=== PATIENT | female | born 1995 | race Caucasian/White ===

== ENCOUNTER → 2020-03-29 | Outpatient (CLI) | payer OTHER, SELFPAY ==
[2020-03-29 18:12] LABS: hCG Titer Quant., Serum 31 mIU/mL (1-3)
== END | disposition home or self-care (01) ==
LOC: LAB 17:03
PROVIDERS: Referring Provider Obstetrics & Gynecology; Visit Provider Obstetrics & Gynecology
DX: N92.6 Irregular menstruation, unspecified (principal)
CPT/HCPCS: 36415; 84702

== ENCOUNTER → 2020-04-01 08:40 | Outpatient (CLI) | payer OTHER, SELFPAY ==
[2020-04-01 09:19] LABS: hCG Titer Quant., Serum 10 mIU/mL (1-3)
== END ==
PROVIDERS: Referring Provider Obstetrics & Gynecology; Visit Provider Obstetrics & Gynecology
DX: N92.1 Excessive and frequent menstruation with irregular cycle (principal)
CPT/HCPCS: 36415; 84702

== ENCOUNTER → 2020-04-04 | Outpatient (CLI) | payer OTHER, SELFPAY ==
[2020-04-04 08:43] LABS: hCG Titer Quant., Serum 1 mIU/mL (1-3)
== END | disposition home or self-care (01) ==
LOC: PAVLAB 08:08
PROVIDERS: Referring Provider Obstetrics & Gynecology Reproductive Endocrinology; Visit Provider Obstetrics & Gynecology Reproductive Endocrinology
DX: O02.1 Missed abortion (principal)
CPT/HCPCS: 36415; 84702

== ENCOUNTER → 2020-05-02 | Outpatient (CLI) | payer OTHER, SELFPAY ==
[2020-05-02 08:49] LABS: hCG Titer Quant., Serum 15 mIU/mL (1-3)
== END | disposition home or self-care (01) ==
LOC: PAVLAB 08:19
PROVIDERS: Referring Provider Obstetrics & Gynecology; Visit Provider Obstetrics & Gynecology
DX: Z32.01 Encounter for pregnancy test, result positive (principal)
CPT/HCPCS: 36415; 84702

== ENCOUNTER → 2020-05-04 | Outpatient (CLI) | payer OTHER, SELFPAY ==
[2020-05-04 07:41] LABS: hCG Titer Quant., Serum 36 mIU/mL (1-3)
== END | disposition home or self-care (01) ==
LOC: LAB 06:53
PROVIDERS: Visit Provider Obstetrics & Gynecology
DX: Z32.01 Encounter for pregnancy test, result positive (principal)
CPT/HCPCS: 36415; 84702

== ENCOUNTER → 2020-05-29 17:16 | Outpatient (CLI) | payer OTHER, SELFPAY ==
[2020-05-29 13:00] VITALS: BMI 27.4
[2020-05-29 18:29] LABS: Amphetamine Urine VISTA NEGATIVE (<1000 ng/mL); Barbiturate Urine VISTA NEGATIVE (< 200 ng/mL); Benzodiazepine Urine VISTA NEGATIVE (< 200 ng/mL); Cocaine Urine VISTA NEGATIVE (< 300 ng/mL); Ecstacy Urine VISTA NEGATIVE (< 500 ng/mL); Methadone Urine VISTA NEGATIVE (< 300 ng/mL); PCP Urine VISTA NEGATIVE (< 25 ng/mL); THC Urine VISTA NEGATIVE (< 50 ng/mL); Vista UDS pH Range 5
[2020-06-01 03:07] LABS: Chlamydia By Nucleic Acid AMP Negative (Negative)
[2020-06-01 07:31] LABS: Gonococcus By Nucleic Acid AMP Negative (Negative)
== END ==
PROVIDERS: PCP Nurse Practitioner Primary Care; Referring Provider Obstetrics & Gynecology; Visit Provider Obstetrics & Gynecology
DX: Z34.90 Encounter for supervision of normal pregnancy, unspecified, unspecified trimester (principal)
CPT/HCPCS: 80307; 87086; 87491; 87591

== ENCOUNTER → 2020-06-14 08:18 | Outpatient (CLI) | payer OTHER, SELFPAY ==
[2020-05-29 13:00] VITALS: BMI 27.4
[2020-06-14 08:47] LABS: Absolute Lymphocyte Count 2.41 X10^3/uL (0.83-4.51); Absolute Neutrophil Count 6.7 X10^3/uL (2.0-7.7); Basophil# 0.05 X10^3/uL; Basophil% 0.5 % (0-1); Eosinophil# 0.41 X10^3/uL; Hematocrit 40.7 % (37-47); Hemoglobin 13.1 g/dL (12.0-15.0); Lymphocyte # 2.41 X10^3/ul (4.0); Lymphocyte % 23.5 % (19-41); Mean Corp Hgb Conc 32.2 g/dL (32-36); Mean Corpuscular Hgb 26.9 pg (27.0-32.0); Mean Corpuscular Volume 83.6 fL (81-99); Mean Platelet Vol. 9.6 fl (6.2-12.0); Monocyte# 0.63 X10^3/uL; Monocyte% 6.1 % (0-10); NRBC Flagged by Analyzer 0 % (0-5); Neutrophil % 65.3 % (47-70); Platelet Count 346 K/mm3 (150-450); RBC Distribution Width SD 39.1 fl (35.1-43.9); Red Blood Count 4.87 M/mm3 (4.2-5.4); White Blood Count 10.3 K/mm3 (4.4-11.0)
[2020-06-14 08:57] LABS: Glucose Challenge Gest 1H 50g 112 mg/dL (70-140)
[2020-06-14 11:47] LABS: HIV - WCH Non-Reactive (Nonreactive); Hepatitis B Surface Antigen Non-Reactive (Nonreactive); Hepatitis C Antibody Non-Reactive (Nonreactive); Rubella IgG 16.2 IU/mL
[2020-06-20 01:33] LABS: Rapid Plasmin Reagin (RPR) NONREACTIVE (NONREACTIVE)
== END ==
PROVIDERS: PCP Nurse Practitioner Primary Care; Referring Provider Obstetrics & Gynecology; Visit Provider Obstetrics & Gynecology
DX: Z34.90 Encounter for supervision of normal pregnancy, unspecified, unspecified trimester (principal)
CPT/HCPCS: 36415; 82950; 85025; 86592; 86703; 86762; 86803; 86850; 86900; 86901; 87340

== ENCOUNTER → 2020-07-17 13:46 | Outpatient (CLI) | payer OTHER, SELFPAY ==
[2020-07-17 08:33] VITALS: BMI 27.7
== END ==
PROVIDERS: PCP Nurse Practitioner Primary Care; Referring Provider Obstetrics & Gynecology; Visit Provider Obstetrics & Gynecology
DX: R30.0 Dysuria (principal)
CPT/HCPCS: 87086; 87088

== ENCOUNTER → 2020-07-25 12:20 | Outpatient (CLI) | payer OTHER, SELFPAY ==
[2020-07-17 08:33] VITALS: BMI 27.7
== END ==
PROVIDERS: PCP Nurse Practitioner Primary Care; Visit Provider Nurse Practitioner Women's Health
DX: O23.40 Unspecified infection of urinary tract in pregnancy, unspecified trimester (principal); Z3A.00 Weeks of gestation of pregnancy not specified
CPT/HCPCS: 87086; 87088

== ENCOUNTER 2020-08-04 20:02 | Emergency (ER) | payer OTHER, SELFPAY ==
[2020-07-17 08:33] VITALS: BMI 27.7
[2020-08-04 20:02] VITALS: BP 130/72; PULSE 88; RESP 16; TEMP 36.5; O2SAT 98; BMI 28.5
--- NOTE | 2020-08-04 20:22 | ED.VIS.GEN ---
History of Present Illness Chief Complaint: Abd Pain Narrative: Patient presents with left lower abdominal pain for a few days, no right abdominal pain. No flank pain no urinary symptoms. She is 16 weeks . She has not felt any movement yet. No fever chills cough or congestion. No chest pain or shortness of breath no lower extremity edema or calf pain or any other symptoms. No nausea vomiting or diarrhea. Past Medical History - Allergies and Home Meds Allergies/Adverse Reactions: Allergies latex Allergy (Mild, Verified 08/04/20 20:05) other morphine Allergy (Mild, Verified 08/04/20 20:05) other penicillin G Allergy (Mild, Verified 08/04/20 20:05) hives Primary Care Physician: Jennifer Abraham NP, CSR TECHNICIAN-C [Primary Care Provider] - Past Medical History: - - G2 at 16 weeks, miscarriage with the first at 4 to 5 weeks Smoking Status: Never smoker Review of Systems All systems negative except as indicated General: Denies: Fever Cardiovascular: Denies: Chest pain Respiratory: Denies: Dyspnea, Cough Gastrointestinal: Reports: Abdominal pain. Denies: Nausea, Vomiting Genitourinary: Denies: Dysuria Musculoskeletal: Denies: Myalgias, Back pain Skin: Denies: Rash Neurological: Denies: Weakness Hematologic: Denies: Easy bruising Physical Exam Vital Signs/Narrative: Vital Signs Temp Pulse Resp BP Pulse Ox 08/04/20 20:02 97.7 F L 88 16 130/72 H 98 General: Well nourished, Well developed Head: Normocephalic, Atraumatic ENT: Moist mucous membranes Neck: Supple Cardiovascular: Regular rate, Regular rhythm Respiratory: No distress, CTA bilaterally Abdomen: Soft, - - Gravid. Tenderness in the left lower quadrant no CVA tenderness. No right-sided abdominal pain. Back: Nontender, Normal Inspection Extremities: Nontender, No edema Skin: Normal color Neurological: Alert, Normal Strength, Normal Sensation Psychological: Normal affect Diagnostic/Tx/Re-eval - Medical Decision Making The bedside ultrasound. Fetus has heart rate in the 140s, there is movement. No gross abnormalities seen on a limited ultrasound exam. I talked to Dr. Ruano is on-call for Dr. Sewell. Patient is stable for discharge and follow-up with [facility] if there is any vaginal bleeding or worsening pain she is to return at this time I will discharge her in stable condition. ED Disposition - Plan for ED Patient: Disposition: Home or Assisted Living Diagnosis: , Abdominal pain Instructions: ED Established Normal Symptoms Referrals: Carmella Sewell MD [STAFF PHYSICIAN] - 3-5 Days
[2020-08-04 20:34] LABS: Bacteria 0 SEEN /hpf (None Seen); Mucous, Urine 0 SEEN /hpf (<or=2+); Red Blood Cells-Urine 0 SEEN /hpf (0-5); Squamous Epithelial Cells - UA 0 SEEN /hpf (5-10); White Blood Cells 0 SEEN /hpf (0-5)
[2020-08-04 20:39] LABS: Color, Urine Yellow (Yellow); Glucose, Dipstick Normal (Normal); Ketone-Dipstick Negative (Negative); Leukocyte Esterase-Dipstick Negative /ul (Negative); Nitrite-Dipstick Negative (Negative); Occult Blood-Urine 10 /ul (Negative); Protein-Dipstick Negative (Negative); Urine Bilirubin Dipstick Negative (Negative); Urine Clarity Clear (Clear); Urine Urobilinogen Normal (Normal); Urine pH 6.5 (5.0 - 8.0)
[2020-08-04 21:07] VITALS: BP 130/73; PULSE 78; RESP 16; O2SAT 98
== END 2020-08-04 21:09 | disposition home or self-care (01) ==
PROVIDERS: Emergency Provider Emergency Medicine; PCP Nurse Practitioner Primary Care
DX: R10.9 Unspecified abdominal pain (principal); O26.892 Other specified pregnancy related conditions, second trimester; Z3A.16 16 weeks gestation of pregnancy
CPT/HCPCS: 81001; 99281

== ENCOUNTER → 2020-08-05 15:55 | Outpatient (CLI) | payer OTHER, SELFPAY ==
[2020-08-05 15:10] VITALS: BMI 28.0
[2020-08-05 16:37] LABS: T4 Free Direct 1.18 ng/dL (0.76-1.46); Thyroid Stim Hormone (TSH) 2.04 uIU/mL (0.358-3.74)
--- NOTE | 2020-08-05 16:53 | US_ITS ---
STUDY: SECOND AND THIRD TRIMESTER OBSTETRICAL ULTRASOUND REASON FOR EXAM: Female, 25 years old LLQ PAIN LMP: TECHNIQUE: Transabdominal TECHNICAL QUALITY: Adequate. PRIOR ULTRASOUND: None. FINDINGS: There is a single intrauterine fetus. The fetus is in a cephalic presentation. There is demonstrated cardiac activity with a heart rate of 153 bpm. There is a normal amniotic fluid volume. The largest amniotic fluid pocket measures 4.9 x 2.9 cm.The placenta is posterior There are Grade 0 placental changes. The cervix measures 3.3 cm in length. The bilateral adnexal regions are normal. BIOMETRY: BPD: 4 cm: 18 weeks, 1 days HC: 15 cm: 12 weeks, 0 days AC: 11.3 cm: 17 weeks, 0 days FL: 2.2 cm: 16 weeks, 4 days CI: 0.76 FL/BPD: 0.55 FL/HC: FL/AC: 0.19 HC/AC: 1.32 age by current US: 17 weeks, 4 days. NICOL by current US: 841-2020. Estimated weight: grams, +/- grams, %. age by prior US: weeks, days. NICOL by prior US: . Age by LMP: 16 weeks, 5 days. NICOL by LMP: 01/15/2021. Left ovary measures 5.4 x 3.1 x 2.2 cm. There is a cyst measuring 2.4 x 2.4 x 1.6 cm likely representing corpus luteum ANATOMY: Not performed at this time. US/OB Limited With Biometrics IMPRESSION: Viable intrauterine gestation approximately 16-17 weeks gestational age. 2.4 x 2.4 x 1.6 cm cyst in left ovary likely corpus luteum Electronically Signed: Livan Vásquez MD at 19:46 EDT , Service support ,
== END ==
PROVIDERS: Nurse Practitioner Women's Health; PCP Nurse Practitioner Primary Care; Referring Provider Obstetrics & Gynecology; Visit Provider Obstetrics & Gynecology
DX: O23.40 Unspecified infection of urinary tract in pregnancy, unspecified trimester (principal); O09.90 Supervision of high risk pregnancy, unspecified, unspecified trimester; Z3A.00 Weeks of gestation of pregnancy not specified
CPT/HCPCS: 36415; 76816; 84439; 84443; 87086; 87088

== ENCOUNTER → 2020-10-25 12:29 | Outpatient (CLI) | payer OTHER, SELFPAY ==
[2020-09-30 08:15] VITALS: BMI 31.4
[2020-10-25 13:12] LABS: Absolute Lymphocyte Count 2.65 X10^3/uL (0.83-4.51); Absolute Neutrophil Count 11.7 X10^3/uL (2.0-7.7); Basophil# 0.08 X10^3/uL; Basophil% 0.5 % (0-1); Eosinophil# 0.42 X10^3/uL; Eosinophils% 2.5 % (0-5); Hematocrit 37.2 % (37-47); Hemoglobin 12.1 g/dL (12.0-15.0); Lymphocyte # 2.65 X10^3/ul (4.0); Lymphocyte % 15.8 % (19-41); Mean Corp Hgb Conc 32.5 g/dL (32-36); Mean Corpuscular Hgb 27.6 pg (27.0-32.0); Mean Corpuscular Volume 84.9 fL (81-99); Mean Platelet Vol. 9.6 fl (6.2-12.0); Monocyte# 1.49 X10^3/uL; Monocyte% 8.9 % (0-10); NRBC Flagged by Analyzer 0 % (0-5); Neutrophil # 11.69 X10^3/uL (2.7-7.7); Neutrophil % 69.7 % (47-70); Platelet Count 340 K/mm3 (150-450); RBC Distribution Width CV 13.7 % (11.6-14.6); RBC Distribution Width SD 42.2 fl (35.1-43.9); Red Blood Count 4.38 M/mm3 (4.2-5.4); White Blood Count 16.8 K/mm3 (4.4-11.0)
[2020-10-25 13:45] LABS: Glucose Challenge Gest 1H 50g 112 mg/dL (70-140); T4 Free Direct 1.04 ng/dL (0.76-1.46); Thyroid Stim Hormone (TSH) 1.66 uIU/mL (0.358-3.74)
== END ==
PROVIDERS: PCP Nurse Practitioner Primary Care; Referring Provider Obstetrics & Gynecology; Visit Provider Obstetrics & Gynecology
DX: O99.280 Endocrine, nutritional and metabolic diseases complicating pregnancy, unspecified trimester (principal); E07.9 Disorder of thyroid, unspecified; Z3A.00 Weeks of gestation of pregnancy not specified
CPT/HCPCS: 36415; 82950; 84439; 84443; 85025

== ENCOUNTER → 2020-12-18 13:10 | Outpatient (CLI) | payer OTHER, SELFPAY ==
[2020-12-18 11:21] VITALS: BMI 35.9
== END ==
PROVIDERS: PCP Nurse Practitioner Primary Care; Referring Provider Nurse Practitioner Women's Health; Visit Provider Nurse Practitioner Women's Health
DX: Z34.90 Encounter for supervision of normal pregnancy, unspecified, unspecified trimester (principal)
CPT/HCPCS: 87077; 87081; 87186

== ENCOUNTER 2021-01-01 23:45 | Inpatient (IN) | payer OTHER, SELFPAY ==
[2020-12-27 11:00] VITALS: BMI 36.8
[2021-01-01 23:22] VITALS: PULSE 110; TEMP 37; O2SAT 98
[2021-01-01 23:25] VITALS: BP 173/99; PULSE 116
[2021-01-01 23:41] VITALS: BP 180/106; PULSE 120
[2021-01-01 23:44] LABS: Hematocrit 38.8 % (37-47); Hemoglobin 12.8 g/dL (12.0-15.0); Mean Corpuscular Hgb 27.9 pg (27.0-32.0); Mean Corpuscular Volume 84.5 fL (81-99); Mean Platelet Vol. 10.6 fl (6.2-12.0); Platelet Count 321 K/mm3 (150-450); RBC Distribution Width CV 14.2 % (11.6-14.6); RBC Distribution Width SD 43.4 fl (35.1-43.9); Red Blood Count 4.59 M/mm3 (4.2-5.4); White Blood Count 15.3 K/mm3 (4.4-11.0)
[2021-01-01] MEDS: Labetalol (Prefilled) 20 MG/4 ML IV (23:53)
[2021-01-01 23:54] VITALS: PULSE 120; O2SAT 98
[2021-01-01 23:55] VITALS: BP 178/99; PULSE 109
[2021-01-01 23:58] LABS: AST(SGOT) 22 U/L (15-37); Alanine Aminotransfer ALT/SGPT 25 U/L (13-56); Creatinine, Serum 0.64 mg/dL (0.55-1.02); EST Glomerular Filtration Rate 120 mL/min (>60); Est Glom Filt Rate - Afr Amer 145 mL/min (>60); Uric Acid 4.8 mg/dL (2.6-6.0)
[2021-01-01 23:59] VITALS: PULSE 108; O2SAT 98
[2021-01-02] VITALS (146 sets, daily range): BP systolic 90–174; BP diastolic 48–99; PULSE 88–121; RESP 16–18; TEMP 36.5–37.6; O2SAT 81–100; BMI 37.3
[2021-01-02] MEDS: Lactated Ringers 1,000 ML 50 ML IV
[2021-01-02 00:22] LABS: Protein, Urine (Random) < 6.0 mg/dL (<11.9)
[2021-01-02] MEDS: Magnesium Sulfate 4gm/100mL 2 GM/50 ML IV.SOLN. IV (00:28)
[2021-01-02] MEDS: Magnesium Sulfate 20 GM/500 ML BAG IV ×3 (00:39→18:00)
[2021-01-02] MEDS: NIFEdipine 30 MG Tablet PO (00:57)
--- NOTE | 2021-01-02 01:48 | PCM.HPOB.BLA ---
- Problem List (1) Pre-eclampsia, severe, third trimester Status: Acute (2) 35 weeks gestation of Status: Acute Comment: electronic covid test ordered 12/13/20 (scheduled for 01/10/21 at 1400) (3) Alpha thalassemia silent carrier Status: Acute Comment: both her and are carriers. declined testing in , plan testing after . (4) GBS (group B Streptococcus carrier), +RV culture, currently Status: Acute (5) Influenza vaccine administered Status: Acute Comment: 06/14/2020sc (6) PCOS (polycystic ovarian syndrome) Status: Acute Comment: spontaneous conception. recommend healthy weight gain. metformin through 14 weeks. (7) Status: Acute Qualifiers: Comment: carrier screening done by [facility], declines genetic and ntd screening. normal anatomy repeat in 2 wks for addtnl views. Renals and stomach nl (8) Pyelectasis of fetus on ultrasound Status: Acute Comment: Left kidney: with proximal ureter minimally dilated. AP diameter of pelvix 4.5mm, FU US needed in 5-6 weeks (9) Supervision of high-risk Status: Acute Qualifiers: Comment: PRR Girl! NICOL 01/15/21 Saul (10) Thyroid disease affecting Status: Acute Comment: check tsh q trimester. drawn already in 1 tm and WNL. 08/05 normal 10/25/2020 NL (11) Urinary tract infection affecting Status: Acute Comment: repeat urine culture neg History and Physical Date of Admission: 01/02/21 Intake Vital Signs 12/27/20 Height 5 ft 7 in 12/27/20 Weight: 235 lb 12/27/20 BMI 36.8 12/27/20 BP 134/83 H Intake Visit Reasons: 37WK OB Chief Complaint: est ob Web Design Intern Required: No Is patient in pain?: No Allergies latex Allergy (Mild, Verified 12/27/20 11:00) other morphine Allergy (Mild, Verified 12/27/20 11:00) other penicillin G Allergy (Mild, Verified 12/27/20 11:00) hives Medications cholecalciferol (vitamin D3) 125 mcg (5,000 unit) capsule 125 mcg PO DAILY 05/29/20 [History Confirmed 12/27/20] cod liver oil 1 cap PO DAILY 05/29/20 [History Confirmed 12/27/20] lactobacillus combination no.8 3 billion cell capsule 3,000 mmu cells PO DAILY 05/29/20 [History Confirmed 12/27/20] levothyroxine 50 mcg tablet 50 mcg PO DAILY 05/29/20 [History Confirmed 12/27/20] vitamin #56-iron 35 mg and 5 mg-folic acid 1 mg-dha capsule 1 cap PO DAILY 05/29/20 [History Confirmed 12/27/20] zinc 50 mg tablet 50 mg PO DAILY 05/29/20 [History Confirmed 12/27/20] polyethylene glycol 3350 17 gram oral powder packet 17 g PO DAILY PRN #30 ea 09/09/20 [Rx Confirmed 12/27/20] Last Menstral Period: 03/30/20 Zika: Zika virus screening: Negative : No PFSH PFSH Medical History Hemorrhoid (Acute) Hypothyroid (Acute) IBS (irritable bowel syndrome) (Acute) Normal colonoscopy (Acute) PCOS (polycystic ovarian syndrome) (Acute) Surgical History History of cholecystectomy (Acute) Family History Mother GERD (gastroesophageal reflux disease) Grandmother Diabetes Social History (Updated 12/28/20 @ 05:[address] Carmella Sewell MD) Smoking Status: Never smoker alcohol intake: never substance use type: does not use caffeine: Yes what type of physical activity do you participate in: none seatbelt use: always do you feel safe at home: Yes additional social history: [facility] The[facility] Patient is a nurse in [place] Pregancy History 2 Elective abortions Hx Para 0 Spontaneous abortions 1 Hx # Term Pregnancies Ectopic pregnancies Hx # Pregnancies Multiple births # of living children Past Pregnancies Del. Date Name GA/Weeks Outcome Route Bth Weight Infant Gen Labor Lgth Anesthesia Del Locatn Provider FOB Unknown SAB 03/2020 HPI 37WK OB : Details: CAMILA PATTON is a 25 year old who presents for routine OB visit. OB Visit NICOL Calculator Estimated Delivery Date Method Current WG Current Estimate 01/15/21 Ultrasound #1 37w 3d Other Estimates 01/04/21 LMP (Certain) 39w 0d Expected Delivery Route/Plan Labor Preferences- CB/BF classes: done labor support person: [facility] labor intervention preferences: open pain management options preferred: minimal intervention but open to epidural cut cord/dad catch: cut yes maybe more : yes PP control planned: [] discussed possible routes of delivery and associated risks: discussed possible delivery modalities and possible indications for each including R/B/A of , VAVD, and CS. questions answered. special requests: [] Specific Issue/Plans flu vaccine:given tdap vaccine: given rhogam: na LARC form signed: declines movement and labor precautions reviewed. Problem list reviewed and updated with the most current plan of care details and appropriate orders placed. Relevant counseling for the gestational age provided. Continue routine care and follow up unless otherwise noted in visit notes/problem list details Initial Weight: 175 lb Date EGA Weight BP Urine Prot Glucose FHR FuHt Pres Dilation Effaced St Visit Note 05/29/20 7w 0d 175 lb 8 oz (+8 oz) 150 SM- CRL 1cm not cons with LMP 06/14/20 9w 2d 173 lb (-2 lb) 185 SM- no vb cramping 07/08/20 12w 5d 177 lb (+2 lb) 132/80 Negative Negative 155 sM- no vb cramping doing well less nausea 08/05/20 16w 5d 179 lb 8 oz (+4 lb 8 oz) 118/76 Negative Negative 157 MH-follow up ED visit last night. Persistent lower left pelvic pain, radiates to back. Saw PCP last week and had negative renal US. States hx of ovarian cyst and feels like that. Did have recent UTI, UA negative today. Culture pending. Proceed with OB US and check for cyst. Denies vaginal bleeding. 09/02/20 20w 5d 188 lb 2 oz (+13 lb 2 oz) 120/78 Negative Negative 150 GP - no cramping, LOF, VB, DFM. Discussed management of constipation. FU anatomy scan tomorrow for non-vis anatomy. 09/30/20 24w 5d 200 lb 4 oz (+25 lb 4 oz) 124/68 Negative Negative 155 24 GP - no LOF, VB, DFM, ctx. GCT next visit. Discussed child classes in third trimester. 10/25/20 28w 2d 210 lb (+35 lb) 120/80 Negative Negative 145 28 SM- no vb lof good fm no regular ctx tdap cbc gct nl 11/08/20 30w 2d 213 lb 4 oz (+38 lb 4 oz) 124/78 Negative Negative 135 31 GP - no LOF, VB, DFM, ctx. Denies complaints. LARC form signed. 11/19/20 31w 6d 219 lb (+44 lb) 128/80 Negative Negative 140 32 SM- no vb lof good fm no regular ctx, left periclitoral folliculitis discussed supportive care 12/06/20 34w 2d 227 lb (+52 lb) 110/76 Negative Negative 140 34 38 SM- no vb lof good fm no regular ctx, having carpal tunnel like symptoms using braces 12/18/20 36w 0d 229 lb (+54 lb) 126/86 Negative Negative 155 38 0 MH-work in:work up with nausea, diarrhea. BP at home X 1 was 155/88. No headache, vision changes. No VB, LOF. Good FM. Minimal edema feet and hands. Reassured, rest, FF. Kick counts. Monitor BP at home and call if >140/90, SMITH or vision changes. 12/27/20 37w 2d 235 lb (+60 lb) 134/83 Negative Negative 140 40 Cephalic 1 SM- no vb lof good fm no regular ctx ACOG First Trimester First Trimester: Desire for , Alcohol, Tobacco Cessation, Illicit/Recreational Drug/Substance Use, Intimate Partner Violence, Barriers to care, Unstable Housing, Communication Barriers, Environmental/Work Hazards, Anticipated Course of Care, Toxoplasmosis Precations, Use of Any medications, Sexual activity, Exercise, Dental Care, Sauna/Hot tub use, Seat Belt use, Childbirth classes/Hospital facilities, , Travel, Indications for US and Screening for Aneuploidy Diagnostics Diagnostics Diagnostics Glucose 1 Hr 50 gm 112 mg/dL (70-140) 10/25/20 Hgb 12.1 g/dL (12.0-15.0) 10/25/20 Hct 37.2 % (37-47) 10/25/20 Details: HIV: Urine Culture: Sequential Screen: NIPT Screen: ROS Const Reports system reviewed and no additional complaints, except as documented Card Reports system reviewed and no additional complaints, except as documented Resp Reports system reviewed and no additional complaints, except as documented GI Reports system reviewed and no additional complaints, except as documented, Reports nausea Reports system reviewed and no additional complaints, except as documented Musc Reports system reviewed and no additional complaints, except as documented all other systems reviewed and negative Exam Const General: cooperative, healthy appearing, comfortable [facility] Head: normal to inspection Nose: external nose normal Face and sinus: normal facial exam Neck Neck: normal visual inspection, full ROM, no lymphadenopathy Thyroid: thyroid normal Chest Chest palpation & inspection: normal inspection of the chest Resp Effort & Inspection: normal respiratory effort GI Inspection: normal to inspection Palpation: soft, other (gravid uterus) Other: infant vertex and appropriate size for gestational age Other: Cervical Exam: 1 Extrem General: pedal edema Results POC Urinalysis 2 Dip (Clinic) Office Urine Glucose Negative Last Edit by Gail Augustin on 12/27/20 11:05 Office Urine Protein Negative Last Edit by Gail Augustin on 12/27/20 11:05 Assessment & Plan Problems 1. Thyroid disease affecting O99.280; E07.9 check tsh q trimester. drawn already in 1 tm and WNL. 08/05 normal 10/25/2020 NL 2. PCOS (polycystic ovarian syndrome) E28.2 spontaneous conception. recommend healthy weight gain. metformin through 14 weeks. 3. Z34.90 carrier screening done by [facility], declines genetic and ntd screening. normal anatomy repeat in 2 wks for addtnl views. Renals and stomach nl 4. Alpha thalassemia silent carrier D56.3 both her and are carriers. declined testing in , plan testing after . 5. Influenza vaccine administered Z23 06/14/2020sc 6. Urinary tract infection affecting O23.40 repeat urine culture neg 7. Pyelectasis of fetus on ultrasound O35.8XX0 Left kidney: with proximal ureter minimally dilated. AP diameter of pelvix 4.5mm, FU US needed in 5-6 weeks 8. 35 weeks gestation of Z3A.35 electronic covid test ordered 12/13/20 (scheduled for 01/10/21 at 1400) 9. GBS (group B Streptococcus carrier), +RV culture, currently O99.820 10. Supervision of high-risk O09.90 PRR Girl! NICOL 01/15/21 [facility] IOL for Preeclampsia with severe features - treated with IV labetalol x1, magnesium sulfate for seizure ppx, Procardia XL 30mg ordered, PreE labs normal on admission Patient presents IOL, plan management for with cytotec. Pain management: Undecided on epidural. GBS positive-plan vancomycin. I have reviewed the [facility] and made any clinically relevant updates. UPDATE- I have seen the patient and performed any clinically relevant updates to the history and physical exam. Jennifer Ruano MD
[2021-01-02] MEDS: miSOPROStol 25 MCG TABLET VAGINAL ×4 (02:19→14:44)
[2021-01-02] MEDS: Acetaminophen 500 MG Tablet PO (06:24)
[2021-01-02] MEDS: 0.9% Saline Lock 10 ML Syringe IV ×2 (06:57→23:42)
[2021-01-02 07:01] LABS: Hematocrit 37.4 % (37-47); Hemoglobin 12.1 g/dL (12.0-15.0); Mean Corp Hgb Conc 32.4 g/dL (32-36); Mean Corpuscular Hgb 27.7 pg (27.0-32.0); Mean Corpuscular Volume 85.6 fL (81-99); Mean Platelet Vol. 10.1 fl (6.2-12.0); Platelet Count 282 K/mm3 (150-450); RBC Distribution Width CV 14.6 % (11.6-14.6); RBC Distribution Width SD 44.9 fl (35.1-43.9); Red Blood Count 4.37 M/mm3 (4.2-5.4); White Blood Count 15.1 K/mm3 (4.4-11.0)
[2021-01-02 07:11] LABS: Fibrinogen 554 mg/dl (203-444)
[2021-01-02 07:28] LABS: AST(SGOT) 18 U/L (15-37); Alanine Aminotransfer ALT/SGPT 23 U/L (13-56); Creatinine, Serum 0.56 mg/dL (0.55-1.02); EST Glomerular Filtration Rate 140 mL/min (>60); Est Glom Filt Rate - Afr Amer 169 mL/min (>60); Estimated Creatinine Clearance 149.34 ml/min; LDH 163 U/L (84-246); Magnesium 12.6 mg/dL (1.6-2.6); Uric Acid 4.6 mg/dL (2.6-6.0)
[2021-01-02 08:18] LABS: Magnesium 4.7 mg/dL (1.6-2.6)
[2021-01-02] MEDS: Magnesium Sulfate 4gm/100mL 4 GM/100 ML IV.SOLN. IV ×2 (08:54)
--- NOTE | 2021-01-02 09:17 | NURSING ---
Mag Bolus initiated and verified by Linda Downing RN and Elieser Long Rn. Mag maintenance 2.5 g/hour initiated and verified by Mary and Shakira Rn.
--- NOTE | 2021-01-02 10:02 | PCM.PN.BLA ---
Progress Note Magnesium level checked due to 4+ hyper reflexia persistent in 2-4+ beats of clonus. Blood pressures well controlled. Mag level subtherapeutic and therefore additional 4 g bolus given and will increase rate to 2.5 g an hour. Repeat mag level in 4 hours. Continue Cytotec at this time, may add Buck bulb with next cervical exam check STROKE Vital Signs/Narrative: Vital Signs Temp Pulse Resp BP Pulse Ox 01/02/21 09:58 103 H 97 01/02/21 09:54 104 H 134/80 H 01/02/21 09:53 97 01/02/21 09:48 108 H 99 01/02/21 09:45 81 01/02/21 09:40 110 H 16 139/82 H 100 01/02/21 09:39 110 H 139/82 H 100 01/02/21 09:34 111 H 99 01/02/21 09:29 109 H 99 01/02/21 09:25 109 H 18 133/69 H 97 01/02/21 09:24 121 H 133/69 H 97 01/02/21 09:19 103 H 97 01/02/21 09:14 105 H 97 01/02/21 09:09 106 H 16 130/73 H 97 01/02/21 09:04 113 H 98 01/02/21 08:59 111 H 98 01/02/21 08:54 97.9 F 96 18 132/77 H 98 01/02/21 08:53 96 132/77 H 01/02/21 07:57 98.3 F 98 01/02/21 07:55 98.3 F 105 H 16 134/75 H 01/02/21 07:54 98.3 F 105 H 134/75 H 01/02/21 07:00 108 H 135/75 H 01/02/21 06:59 99.3 F H 98 01/02/21 06:08 98.1 F
[2021-01-02] MEDS: 0.9% Normal Saline Single 100 ML IV.SOLN. INTRA-UTER (12:43)
[2021-01-02 13:41] LABS: Magnesium 5.6 mg/dL (1.6-2.6)
[2021-01-02] MEDS: Lactated Ringers 500 ML 999 ML IV ×2 (15:02→16:15)
--- NOTE | 2021-01-02 15:05 | PCM.PN.BLA ---
Progress Note FB placed, cytotec given at 230 and then patient requesting epidural. doing well bps controlled. fht cat I and reassuring, mag level therapeutic, continue 2.5g/hr STROKE Vital Signs/Narrative: Vital Signs Temp Pulse Resp BP Pulse Ox 01/02/21 14:50 98.5 F 89 16 129/73 H 98 01/02/21 14:00 97.9 F 01/02/21 13:57 99 136/64 H 01/02/21 13:56 97.9 F 99 16 136/64 H 98 01/02/21 12:59 99 01/02/21 12:57 97.9 F 94 16 134/65 H 99 01/02/21 12:04 102 H 138/80 H 01/02/21 12:03 97.7 F L 01/02/21 12:02 97.7 F L 102 H 18 138/80 H 100
[2021-01-02] MEDS: fentaNYL-bupivacaine (epidural) 100 ML BAG EPIDURAL ×2 (15:56→20:16)
[2021-01-02] MEDS: Oxytocin 30 units/NS 500 ml 30 UNITS/500 ML IV.SOLN IV (20:11)
[2021-01-02] MEDS: Ondansetron 4 MG/2 ML Vial IV (23:41)
[2021-01-03] VITALS (69 sets, daily range): BP systolic 114–145; BP diastolic 54–87; PULSE 88–146; RESP 16–18; TEMP 36.6–37.3; O2SAT 94–100
[2021-01-03] MEDS: 0.9% Saline Lock 10 ML Syringe IV (00:19)
[2021-01-03] MEDS: NIFEdipine 30 MG Tablet PO (00:19)
[2021-01-03] MEDS: fentaNYL-bupivacaine (epidural) 100 ML BAG EPIDURAL (01:03)
[2021-01-03] MEDS: Magnesium Sulfate 20 GM/500 ML BAG IV ×3 (02:01→21:41)
--- NOTE | 2021-01-03 02:02 | PCM.PN.BLA ---
Progress Note heart tone 150 minimal to moderate variability. Category 2 tracing having periods of recurrent late decelerations, intermittent periodic variable decelerations despite interventions with position changes and oxygen. Patient is made 1 cm of change in 14 hours arrested at 5 to 6 cm. Cervix thicker and more swollen now and flat pubic arch suspicious for CPD. intolerance to labor. Discussed with patient and her recommend proceeding with primary low transverse STROKE Vital Signs/Narrative: Vital Signs Temp Pulse BP Pulse Ox 01/03/21 01:33 98.6 F 96 114/56 L 01/03/21 00:57 98.6 F 93 126/65 H 01/03/21 00:05 98.4 F 98 125/64 H 100 01/02/21 23:33 96 117/58 L 01/02/21 22:38 98.1 F 98 105/53 L
--- NOTE | 2021-01-03 02:04 | OP.PCM_ITS ---
Problem List (1) Arrest of dilation, delivered, current hospitalization Status: Acute (2) Non-reassuring heart rate or rhythm affecting management of fetus Status: Acute (3) 35 weeks gestation of Status: Acute Comment: electronic covid test ordered 12/13/20 (scheduled for 01/10/21 at 1400) (4) Alpha thalassemia silent carrier Status: Acute Comment: both her and are carriers. declined testing in , plan testing after . (5) GBS (group B Streptococcus carrier), +RV culture, currently Status: Acute (6) Influenza vaccine administered Status: Acute Comment: 06/14/2020sc (7) PCOS (polycystic ovarian syndrome) Status: Acute Comment: spontaneous conception. recommend healthy weight gain. metformin through 14 weeks. (8) Pre-eclampsia, severe, third trimester Status: Acute (9) Status: Acute Qualifiers: Comment: carrier screening done by [facility], declines genetic and ntd screening. normal anatomy repeat in 2 wks for addtnl views. Renals and stomach nl (10) Pyelectasis of fetus on ultrasound Status: Acute Comment: Left kidney: with proximal ureter minimally dilated. AP diameter of pelvix 4.5mm, FU US needed in 5-6 weeks (11) Supervision of high-risk Status: Acute Qualifiers: Comment: PRR Girl! NICOL 01/15/21 Saul (12) Thyroid disease affecting Status: Acute Comment: check tsh q trimester. drawn already in 1 tm and WNL. 08/05 normal 10/25/2020 NL (13) Urinary tract infection affecting Status: Acute Comment: repeat urine culture neg Delivery Classification: BRENT application assistant: Khushi Celis Type of Anesthesia:: Epidural Special Medications: none Implants Used: none Date of Procedure: 01/03/21 Pre-Operative Diagnosis: intolerance to labor, arrest of dilation Post-Operative Diagnosis: same Indications for : Failure to Progress, Distress Description of Procedure: Patient presented secondary to elevated blood pressures at home and upon evaluation she was diagnosed with preeclampsia with severe features and started on magnesium sulfate. Patient was still hyperreflexic and therefore a mag level was checked and noted to be inadequate and therefore the magnesium sulfate was increased. Patient underwent induction with Cytotec followed by Cytotec and Buck bulb followed by Pitocin. Patient experienced an arrest of dilation for 14 hours between 5 and 6 cm. Contractions were unable to be made adequate due to intolerance to labor and periods of recurrent decelerations. Cervix began to feel more swollen upon the last check and it was discussed with the patient and her the decision to proceed with a primary low transverse C- section. The patient was placed in the dorsal supine position with leftward tilt. Patient was prepped and draped in the normal sterile fashion. Pfannenstiel skin incision was made with the scalpel and carried through to the underlying layer of fascia with the scalpel. Fascia was nicked in the midline and the incision extended laterally. The rectus bellies were dissected off superiorly and inferiorly with out complication both sharply and bluntly. The peritoneum was entered digitally. The incision was stretched and a low transverse uterine incision was made with the scalpel. The 's head was delivered atraumatically followed by the anterior and posterior shoulders without complication the rest of the infant delivered. The cord was clamped and cut and the infant was handed off to awaiting nurse. The placenta was delivered spontaneously immediately following and was noted to be intact and have a three- vessel cord. The uterus was exteriorized cleared of all clots and debris, and the incision was closed in a double layer closure using #1 Monocryl. The ovaries and fallopian tubes were noted to be within normal limits. The uterus was returned to the maternal abdomen and gutters were cleared of all clots and debris. The peritoneum was closed with 3-0 Monocryl in a running fashion. Gloves were changed prior to fascial closure. Fascia was closed with 0 PDS in a running fashion. Subcutaneous tissue was copiously irrigated and the skin was closed with 3-0 Monocryl in a subcuticular fashion. Mepilex dressing was applied without complication. Patient was taken to recovery in stable condition. Amniotic Membrane Rupture Type: Artificial Amniotic Fluid Description: Clear Placenta Disposition: [facility] Fluids Replaced: crystalloid Cord Entanglement: None Esitmated Blood Loss (ml): 300 Infant Gender: Female Delayed cord clamping: Yes Antibiotic Given: Clindamycin 600mg IV x1 and Gentamicin 1.5mg/kg IV x1, Zithromax 500 mg/5 mL X1 Pt instructed on risks of surgery: Bleeding, Anesthesia Risks, Infection, Injury to surrounding structure(s) including bowel and bladder Complications: None - Admit VTE Documentation VTE Present on Admission: No VTE Mechan Device Prophylaxis: SCD's Multi Select Codes - Urinary/Genital Urinary/Genital CPT Codes: 37721 [facility]
--- NOTE | 2021-01-03 02:16 | DCINST_ITS ---
Discharge Diet: No Restrictions Discharge Activity: May Not Drive - for 2 weeks, May not drive while taking narcotic pain medications., May Shower, May Take a Tub Bath - in 7 days May resume sexual activity in: 4-6 weeks Lifting Restrictions: 20 pounds Additional Activity Instructions:: Nothing in the vagina for 4-6 weeks. You may return to work/school in 6 weeks. Call your doctor if your incision/area has: Continuous Slow Oozing, Sudden Increased Bleeding, Increased Pain/ Swelling, Increased Redness, Foul Smelling Discharge Call your doctor if you observe: Fever of 101 or Higher, Using more than one pad per hour - for 2 hours Suture Line Care: Avoid Pulling/Pushing, Avoid Pinching/Bending Cleanse incision/area with: Keep Dressing Clean & Dry Additional Instructions: If you experience any of the following, contact your healthcare provider. * Bleeding that soaks a pad every hour for 2 hours * Fever 100.4 or higher * Unrelieved incision or abdominal pain * Swelling, redness, discharge or bleeding from your incision or episiotomy site * Your incision begins to separate * Problems urinating (including inability to urinate or burning while urinating). * Visual changes * Severe headache * Flu-like symptoms * Pain or redness in one of both of your breasts * Pain, warmth, tenderness or swelling in your legs, especially the calf area * Frequent nausea and vomiting * Symptoms of depression or anxiety If you experience any of the following, call 911 or go to the nearest Emergency Room. * Chest pain * Problems breathing * Seizure activity * Partial or complete paralysis of a body part, slurred speech, weakness or drooping of the face, or a sudden inability to walk or hold your balance Allergies/Adverse Reactions: Allergies morphine Allergy (Severe, Verified 01/02/21 00:36) Anaphylaxis penicillin G Allergy (Severe, Verified 01/02/21 00:36) Anaphylaxis latex Allergy (Mild, Verified 01/02/21 00:36) Rash Medications to take at Discharge cholecalciferol (vitamin D3) 125 mcg (5,000 unit) capsule 125 mcg PO DAILY 05/29/20 cod liver oil 1 cap PO DAILY 05/29/20 lactobacillus combination no.8 3 billion cell capsule 3,000 mmu cells PO DAILY 05/29/20 levothyroxine 50 mcg tablet 50 mcg PO DAILY 05/29/20 vitamin #56-iron 35 mg and 5 mg-folic acid 1 mg-dha capsule 1 cap PO DAILY 05/29/20 zinc 50 mg tablet 50 mg PO DAILY 05/29/20 Docusate Sodium [Colace] 100 mg PO DAILY 01/02/21 Polyethylene Glycol 3350 17 gm PO PRN PRN 01/02/21 Naproxen [Naprosyn] 250 - 500 mg PO Q8H PRN PRN #30 tab 01/03/21 The following prescriptions were given: Naproxen [Naprosyn] 250 - 500 mg PO Q8H PRN PRN #30 tab PRN Reason: MILD PAIN Transmission Status: Pending to [facility] Follow-Up: Call to make an appointment with your doctor for an incision check in 1-2 weeks. You will also need a 6 week post- follow up appointment. Test results from this visit will be discussed in further detail at your follow- up appointment, if applicable. Please Follow Up With: Carmella Sewell MD - Call to make an appointment for an incision check in 1-2 [phone] When: You will need a post- check in 6 weeks. Primary Care Physician: Jennifer Abraham NP, [employer]ATOR-[employer] [Primary Care Provider] -
[2021-01-03] MEDS: Sodium Citrate/Citric Acid 30 ML UDC PO (02:27)
[2021-01-03] MEDS: Oxytocin 30 units/NS 500 ml 30 UNITS/500 ML IV.SOLN 167 UNITS IV (04:00)
[2021-01-03] MEDS: Acetaminophen 500 MG Tablet 1000 MG PO ×4 (05:18→23:13)
[2021-01-03] MEDS: Ketorolac 30 MG/ML Syringe IV ×4 (05:19→23:13)
[2021-01-03] MEDS: Lactated Ringers 1,000 ML 75 ML IV (07:00)
[2021-01-03 07:13] LABS: Absolute Lymphocyte Count 1.47 X10^3/uL (0.83-4.51); Absolute Neutrophil Count 15.7 X10^3/uL (2.0-7.7); Basophil# 0.04 X10^3/uL; Basophil% 0.2 % (0-1); Eosinophil# 0.07 X10^3/uL; Eosinophils% 0.4 % (0-5); Hemoglobin 11.5 g/dL (12.0-15.0); Lymphocyte # 1.47 X10^3/ul (4.0); Lymphocyte % 7.9 % (19-41); Mean Corp Hgb Conc 31.9 g/dL (32-36); Mean Corpuscular Hgb 27.1 pg (27.0-32.0); Mean Corpuscular Volume 84.9 fL (81-99); Mean Platelet Vol. 10.2 fl (6.2-12.0); Monocyte# 1.21 X10^3/uL; Monocyte% 6.5 % (0-10); NRBC Flagged by Analyzer 0 % (0-5); Neutrophil # 15.66 X10^3/uL (2.7-7.7); Neutrophil % 84.2 % (47-70); Platelet Count 274 K/mm3 (150-450); RBC Distribution Width CV 14.3 % (11.6-14.6); RBC Distribution Width SD 43.9 fl (35.1-43.9); Red Blood Count 4.24 M/mm3 (4.2-5.4); White Blood Count 18.6 K/mm3 (4.4-11.0)
[2021-01-03 07:32] LABS: ALB/GLOB Ratio 0.7 RATIO (0.9-2.4); AST(SGOT) 22 U/L (15-37); Alanine Aminotransfer ALT/SGPT 24 U/L (13-56); Albumin, Serum 2.5 g/dL (3.2-5.0); Alkaline Phosphatase 117 U/L (45-117); Anion Gap 8 (5-15); BUN 6 mg/dL (7-18); BUN/Creat Ratio 11.5 RATIO (10-20); Calcium,Total 6.9 mg/dL (8.5-10.1); Chloride 102 mmol/L (98-107); Creatinine, Serum 0.52 mg/dL (0.55-1.02); EST Glomerular Filtration Rate 151 mL/min (>60); Est Glom Filt Rate - Afr Amer 183 mL/min (>60); Estimated Creatinine Clearance 160.83 ml/min; Globulin 3.5 g/dL (2.2-4.2); Glucose 109 mg/dL (74-106); Magnesium 4.6 mg/dL (1.6-2.6); Potassium 3.9 mmol/L (3.5-5.1); Sodium Level 132 mmol/L (136-145)
[2021-01-03] MEDS: Senna/Docusate Sodium 1 Tablet PO (11:20)
[2021-01-03] MEDS: Enoxaparin 40 MG/0.4 ML Syringe SC (15:47)
[2021-01-03] MEDS: oxyCODONE 5 MG Tablet PO (17:14)
[2021-01-03] MEDS: Lactated Ringers 1,000 ML 15 ML IV (18:12)
[2021-01-04] VITALS (13 sets, daily range): BP systolic 102–139; BP diastolic 52–78; PULSE 85–98; RESP 16–18; TEMP 36.3–37.1; O2SAT 94–98
[2021-01-04] MEDS: 0.9% Saline Lock 10 ML Syringe IV (03:50)
[2021-01-04] MEDS: oxyCODONE 5 MG Tablet PO (03:52)
[2021-01-04] MEDS: Naproxen 250 MG Tablet 500 MG PO ×3 (05:37→19:39)
[2021-01-04] MEDS: Acetaminophen 500 MG Tablet 1000 MG PO ×3 (05:37→17:46)
--- NOTE | 2021-01-04 09:27 | PN.OBGYN_ITS ---
Patient Problems: Active and Suspected Problems (Last Reviewed 12/27/20 @ 11:00 by Gail Augustin) Influenza vaccine administered (Acute) 06/14/2020sc Alpha thalassemia silent carrier (Acute) both her and are carriers. declined testing in , plan testing after . PCOS (polycystic ovarian syndrome) (Acute) spontaneous conception. recommend healthy weight gain. metformin through 14 weeks. Thyroid disease affecting (Acute) check tsh q trimester. drawn already in 1 tm and WNL. 08/05 normal 10/25/2020 NL Subjective: Patient doing well without complaints. Tolerating PO. Ambulating and voiding without difficulty. Breast feeding well. Denies chest pain, shortness of breath, calf pain/swelling, fevers, chills, lightheadedness, headaches, vision changes. Objective: Laboratory Tests 01/03/21 01/03/21 01/02/21 Range/Units 06:05 06:05 13:00 WBC 18.6 H (4.4-11.0) K/mm3 RBC 4.24 (4.2-5.4) M/mm3 Hgb 11.5 L (12.0-15.0) g/dL Hct 36.0 L (37-47) % MCV 84.9 (81-99) fL MCH 27.1 (27.0-32.0) pg MCHC 31.9 L (32-36) g/dL RDW Std Deviation 43.9 (35.1-43.9) fl RDW Coeff of Brittney 14.3 (11.6-14.6) % Plt Count 274 (150-450) K/mm3 MPV 10.2 (6.2-12.0) fl Immature Gran % (Auto) 0.800 (0.0-0.9) % Neut % (Auto) 84.2 H (47-70) % Lymph % (Auto) 7.9 L (19-41) % Carter % (Auto) 6.5 (0-10) % Eos % (Auto) 0.4 (0-5) % Baso % (Auto) 0.2 (0-1) % Absolute Neuts (auto) 15.7 H (2.0-7.7) X10^3/uL Absolute Lymphs (auto) 1.47 (0.83-4.51) X10^3/uL Nucleated RBC % 0 (0-5) % Fibrinogen (203-444) mg/dl Sodium 132 L (136-145) mmol/L Potassium 3.9 (3.5-5.1) mmol/L Chloride 102 (98-107) mmol/L Carbon Dioxide 22.0 (21.0-32.0) mmol/L Anion Gap 8 (5-15) BUN 6 L (7-18) mg/dL Creatinine 0.52 L (0.55-1.02) mg/dL Estim Creat Clear Calc 160.83 ml/min Est GFR (MDRD) Af Amer 183 (>60) mL/min Est GFR (MDRD) Non-Af 151 (>60) mL/min BUN/Creatinine Ratio 11.5 (10-20) RATIO Glucose 109 H (74-106) mg/dL Uric Acid (2.6-6.0) mg/dL Calcium 6.9 L (8.5-10.1) mg/dL Magnesium 4.6 H 5.6 H* (1.6-2.6) mg/dL Total Bilirubin 0.60 (0.20-1.00) mg/dL AST 22 (15-37) U/L ALT 24 (13-56) U/L Alkaline Phosphatase 117 (45-117) U/L Lactate Dehydrogenase (84-246) U/L Total Protein 6.0 L (6.4-8.2) g/dL Albumin 2.5 L (3.2-5.0) g/dL Globulin 3.5 (2.2-4.2) g/dL Albumin/Globulin Ratio 0.7 L (0.9-2.4) RATIO U Random Total Protein (<11.9) mg/dL Urine Creatinine (NO RANGE EST.) mg/dL Protein/Creatinin Ratio Blood Type Antibody Screen 01/02/21 01/02/21 01/02/21 Range/Units 07:40 06:53 06:53 WBC (4.4-11.0) K/mm3 RBC (4.2-5.4) M/mm3 Hgb (12.0-15.0) g/dL Hct (37-47) % MCV (81-99) fL MCH (27.0-32.0) pg MCHC (32-36) g/dL RDW Std Deviation (35.1-43.9) fl RDW Coeff of Brittney (11.6-14.6) % Plt Count (150-450) K/mm3 MPV (6.2-12.0) fl Immature Gran % (Auto) (0.0-0.9) % Neut % (Auto) (47-70) % Lymph % (Auto) (19-41) % Carter % (Auto) (0-10) % Eos % (Auto) (0-5) % Baso % (Auto) (0-1) % Absolute Neuts (auto) (2.0-7.7) X10^3/uL Absolute Lymphs (auto) (0.83-4.51) X10^3/uL Nucleated RBC % (0-5) % Fibrinogen 554 H (203-444) mg/dl Sodium (136-145) mmol/L Potassium (3.5-5.1) mmol/L Chloride (98-107) mmol/L Carbon Dioxide (21.0-32.0) mmol/L Anion Gap (5-15) BUN (7-18) mg/dL Creatinine 0.56 (0.55-1.02) mg/dL Estim Creat Clear Calc 149.34 ml/min Est GFR (MDRD) Af Amer 169 (>60) mL/min Est GFR (MDRD) Non-Af 140 (>60) mL/min BUN/Creatinine Ratio (10-20) RATIO Glucose (74-106) mg/dL Uric Acid 4.6 (2.6-6.0) mg/dL Calcium (8.5-10.1) mg/dL Magnesium 4.7 H 12.6 H* (1.6-2.6) mg/dL Total Bilirubin (0.20-1.00) mg/dL AST 18 (15-37) U/L ALT 23 (13-56) U/L Alkaline Phosphatase (45-117) U/L Lactate Dehydrogenase 163 (84-246) U/L Total Protein (6.4-8.2) g/dL Albumin (3.2-5.0) g/dL Globulin (2.2-4.2) g/dL Albumin/Globulin Ratio (0.9-2.4) RATIO U Random Total Protein (<11.9) mg/dL Urine Creatinine (NO RANGE EST.) mg/dL Protein/Creatinin Ratio Blood Type Antibody Screen 01/02/21 01/01/21 01/01/21 Range/Units 06:53 23:30 23:30 WBC 15.1 H (4.4-11.0) K/mm3 RBC 4.37 (4.2-5.4) M/mm3 Hgb 12.1 (12.0-15.0) g/dL Hct 37.4 (37-47) % MCV 85.6 (81-99) fL MCH 27.7 (27.0-32.0) pg MCHC 32.4 (32-36) g/dL RDW Std Deviation 44.9 H (35.1-43.9) fl RDW Coeff of Brittney 14.6 (11.6-14.6) % Plt Count 282 (150-450) K/mm3 MPV 10.1 (6.2-12.0) fl Immature Gran % (Auto) (0.0-0.9) % Neut % (Auto) (47-70) % Lymph % (Auto) (19-41) % Carter % (Auto) (0-10) % Eos % (Auto) (0-5) % Baso % (Auto) (0-1) % Absolute Neuts (auto) (2.0-7.7) X10^3/uL Absolute Lymphs (auto) (0.83-4.51) X10^3/uL Nucleated RBC % (0-5) % Fibrinogen (203-444) mg/dl Sodium (136-145) mmol/L Potassium (3.5-5.1) mmol/L Chloride (98-107) mmol/L Carbon Dioxide (21.0-32.0) mmol/L Anion Gap (5-15) BUN (7-18) mg/dL Creatinine 0.64 (0.55-1.02) mg/dL Estim Creat Clear Calc ml/min Est GFR (MDRD) Af Amer 145 (>60) mL/min Est GFR (MDRD) Non-Af 120 (>60) mL/min BUN/Creatinine Ratio (10-20) RATIO Glucose (74-106) mg/dL Uric Acid 4.8 (2.6-6.0) mg/dL Calcium (8.5-10.1) mg/dL Magnesium (1.6-2.6) mg/dL Total Bilirubin (0.20-1.00) mg/dL AST 22 (15-37) U/L ALT 25 (13-56) U/L Alkaline Phosphatase (45-117) U/L Lactate Dehydrogenase (84-246) U/L Total Protein (6.4-8.2) g/dL Albumin (3.2-5.0) g/dL Globulin (2.2-4.2) g/dL Albumin/Globulin Ratio (0.9-2.4) RATIO U Random Total Protein (<11.9) mg/dL Urine Creatinine (NO RANGE EST.) mg/dL Protein/Creatinin Ratio Blood Type A POSITIVE Antibody Screen NEGATIVE 01/01/21 01/01/21 Range/Units 23:30 23:30 WBC 15.3 H (4.4-11.0) K/mm3 RBC 4.59 (4.2-5.4) M/mm3 Hgb 12.8 (12.0-15.0) g/dL Hct 38.8 (37-47) % MCV 84.5 (81-99) fL MCH 27.9 (27.0-32.0) pg MCHC 33.0 (32-36) g/dL RDW Std Deviation 43.4 (35.1-43.9) fl RDW Coeff of Brittney 14.2 (11.6-14.6) % Plt Count 321 (150-450) K/mm3 MPV 10.6 (6.2-12.0) fl Immature Gran % (Auto) (0.0-0.9) % Neut % (Auto) (47-70) % Lymph % (Auto) (19-41) % Carter % (Auto) (0-10) % Eos % (Auto) (0-5) % Baso % (Auto) (0-1) % Absolute Neuts (auto) (2.0-7.7) X10^3/uL Absolute Lymphs (auto) (0.83-4.51) X10^3/uL Nucleated RBC % (0-5) % Fibrinogen (203-444) mg/dl Sodium (136-145) mmol/L Potassium (3.5-5.1) mmol/L Chloride (98-107) mmol/L Carbon Dioxide (21.0-32.0) mmol/L Anion Gap (5-15) BUN (7-18) mg/dL Creatinine (0.55-1.02) mg/dL Estim Creat Clear Calc ml/min Est GFR (MDRD) Af Amer (>60) mL/min Est GFR (MDRD) Non-Af (>60) mL/min BUN/Creatinine Ratio (10-20) RATIO Glucose (74-106) mg/dL Uric Acid (2.6-6.0) mg/dL Calcium (8.5-10.1) mg/dL Magnesium (1.6-2.6) mg/dL Total Bilirubin (0.20-1.00) mg/dL AST (15-37) U/L ALT (13-56) U/L Alkaline Phosphatase (45-117) U/L Lactate Dehydrogenase (84-246) U/L Total Protein (6.4-8.2) g/dL Albumin (3.2-5.0) g/dL Globulin (2.2-4.2) g/dL Albumin/Globulin Ratio (0.9-2.4) RATIO U Random Total Protein < 6.0 (<11.9) mg/dL Urine Creatinine 28.90 (NO RANGE EST.) mg/dL Protein/Creatinin Ratio TNP Blood Type Antibody Screen - Physical Exam Vitals/I&O's: Vital Signs Temp Pulse Resp BP Pulse Ox 97.4 F L 97 16 130/73 H 98 01/04/21 08:33 01/04/21 08:33 01/04/21 08:33 01/04/21 08:33 01/04/21 08:33 Oxygen Delivery Method Room Air Weight: 238 lb 12.8 oz Body Mass Index (BMI) 37.3 Intake and Output for Last 24 Hours 01/02/21 01/03/21 01/04/21 23:59 23:59 23:59 Intake Total 5039.11 / 5101.61 4313.94 / 4313.94 496.42 / 496.42 Output Total 3250 / 3250 5025 / 5025 1400 / 1400 Balance 1789.11 / 1851.61 -711.06 / -711.06 -903.58 / -903.58 General: Alert, Oriented x3, Cooperative, No apparent distress, Well developed, Well nourished HEENT: Atraumatic, PERRLA, EOMI, Normocephalic Neck: Supple, No JVD Lungs: Normal air movement Cardiovascular: Regular rate Abdomen: Soft, Non Tender, Non-Distended, - - incision c/d/i, fundus firm Extremities: No edema, No Calf Tenderness Neurological: Cranial nerves II-XII grossly intact, Neuro grossly intact Psych/Mental Status: Normal Affect, Appropriate Microbiology Past 72 Hours 01/02/21 01:40 Mucosa - Nose SARS-CoV-2 Antigen (Rapid) - Final Current Medications Acetaminophen (Acetaminophen 500 Mg Tablet) 1,000 mg PO Q6H [facility] Last Admin: 01/04/21 05:37 Dose: 1,000 mg Documented by: Bisacodyl (Bisacodyl 10 Mg Suppository) 10 mg RC UD PRN PRN Reason: If no BM Enoxaparin Sodium (Enoxaparin 40 Mg/0.4 Ml Syringe) 40 mg SC DAILY [facility] Last Admin: 01/03/21 15:47 Dose: 40 mg Documented by: Hydrocortisone (Hydrocortisone 2.5% Crm) 1 applic TOPICAL TID PRN PRN; Protocol PRN Reason: Discomfort Naloxone HCl (Naloxone 0.4 Mg/Ml Syringe) 0.02 mg IV Q1M PRN PRN Reason: RR <10 and pt unresponsive Naproxen (Naproxen 250 Mg Tablet) 500 mg PO Q8H [facility] Last Admin: 01/04/21 05:37 Dose: 500 mg Documented by: Ondansetron HCl (Ondansetron 4 Mg/2 Ml Vial) 4 mg IV Q4H PRN PRN PRN Reason: Nausea Oxycodone HCl (Oxycodone 5 Mg Tablet) 5 mg PO Q4H PRN PRN PRN Reason: Pain Score 6-10 Last Admin: 01/04/21 03:52 Dose: 5 mg Documented by: Prochlorperazine Edisylate (Prochlorperazine 10 Mg/2 Ml Vial) 10 mg IV Q6H PRN PRN PRN Reason: NAUSEA Senna/Docusate Sodium (Senna/Docusate Sodium 1 Tablet) 0 tablet PO DAILY [facility] Last Admin: 01/03/21 11:20 Dose: 1 tablet Documented by: Simethicone (Simethicone 80 Mg Tablet) 80 mg PO PCHS PRN PRN Reason: Indigestion/stomach pain Sodium Chloride (0.9% Saline Lock 10 Ml Syringe) 5 - 15 ml IV UD PRN PRN Reason: SALINE FLUSH Last Admin: 01/04/21 03:50 Dose: 10 ml Documented by: Medical Necessity - Tobacco Use Smoking Status: Never smoker Assessment/Plan All Active Problems (Last Reviewed 12/27/20 @ 11:00 by Gail Augustin) Influenza vaccine administered (Acute) Alpha thalassemia silent carrier (Acute) PCOS (polycystic ovarian syndrome) (Acute) Thyroid disease affecting (Acute) 35 weeks gestation of (Resolved) Arrest of dilation, delivered, current hospitalization (Resolved) GBS (group B Streptococcus carrier), +RV culture, currently (Resolved) Non-reassuring heart rate or rhythm affecting management of fetus (Resolved) Pre-eclampsia, severe, third trimester (Resolved) (Resolved) Pyelectasis of fetus on ultrasound (Resolved) Supervision of high-risk (Resolved) Urinary tract infection affecting (Resolved) s/p LTCS PPD # 1 1. routine post care 2. breast feeding- support given 3. rh positive 4. rubella immune 5. PreE with severe features - s/p mag, UOP adequate, BPs controlled without medication, asymptomatic
[2021-01-04] MEDS: Senna/Docusate Sodium 1 Tablet PO (09:35)
[2021-01-04] MEDS: Enoxaparin 40 MG/0.4 ML Syringe SC (09:35)
[2021-01-05] MEDS: Acetaminophen 500 MG Tablet 1000 MG PO ×2 (00:17→06:10)
[2021-01-05 01:55] VITALS: BP 131/73; PULSE 92; RESP 16; TEMP 36.2
[2021-01-05] MEDS: Naproxen 250 MG Tablet 500 MG PO (06:10)
--- NOTE | 2021-01-05 07:59 | PN.OBGYN_ITS ---
Patient Problems: Active and Suspected Problems (Last Reviewed 12/27/20 @ 11:00 by Gail Augustin) Influenza vaccine administered (Acute) 06/14/2020sc Alpha thalassemia silent carrier (Acute) both her and are carriers. declined testing in , plan testing after . PCOS (polycystic ovarian syndrome) (Acute) spontaneous conception. recommend healthy weight gain. metformin through 14 weeks. Thyroid disease affecting (Acute) check tsh q trimester. drawn already in 1 tm and WNL. 08/05 normal 10/25/2020 NL Subjective: Patient doing well without complaints. Tolerating PO. Ambulating and voiding without difficulty. Breast feeding well. Denies chest pain, shortness of breath, calf pain/swelling, fevers, chills, lightheadedness. Objective: Laboratory Tests 01/03/21 01/03/21 01/02/21 Range/Units 06:05 06:05 13:00 WBC 18.6 H (4.4-11.0) K/mm3 RBC 4.24 (4.2-5.4) M/mm3 Hgb 11.5 L (12.0-15.0) g/dL Hct 36.0 L (37-47) % MCV 84.9 (81-99) fL MCH 27.1 (27.0-32.0) pg MCHC 31.9 L (32-36) g/dL RDW Std Deviation 43.9 (35.1-43.9) fl RDW Coeff of Brittney 14.3 (11.6-14.6) % Plt Count 274 (150-450) K/mm3 MPV 10.2 (6.2-12.0) fl Immature Gran % (Auto) 0.800 (0.0-0.9) % Neut % (Auto) 84.2 H (47-70) % Lymph % (Auto) 7.9 L (19-41) % [place] % (Auto) 6.5 (0-10) % Eos % (Auto) 0.4 (0-5) % Baso % (Auto) 0.2 (0-1) % Absolute Neuts (auto) 15.7 H (2.0-7.7) X10^3/uL Absolute Lymphs (auto) 1.47 (0.83-4.51) X10^3/uL Nucleated RBC % 0 (0-5) % Fibrinogen (203-444) mg/dl Sodium 132 L (136-145) mmol/L Potassium 3.9 (3.5-5.1) mmol/L Chloride 102 (98-107) mmol/L Carbon Dioxide 22.0 (21.0-32.0) mmol/L Anion Gap 8 (5-15) BUN 6 L (7-18) mg/dL Creatinine 0.52 L (0.55-1.02) mg/dL Estim Creat Clear Calc 160.83 ml/min Est GFR (MDRD) Af Amer 183 (>60) mL/min Est GFR (MDRD) Non-Af 151 (>60) mL/min BUN/Creatinine Ratio 11.5 (10-20) RATIO Glucose 109 H (74-106) mg/dL Uric Acid (2.6-6.0) mg/dL Calcium 6.9 L (8.5-10.1) mg/dL Magnesium 4.6 H 5.6 H* (1.6-2.6) mg/dL Total Bilirubin 0.60 (0.20-1.00) mg/dL AST 22 (15-37) U/L ALT 24 (13-56) U/L Alkaline Phosphatase 117 (45-117) U/L Lactate Dehydrogenase (84-246) U/L Total Protein 6.0 L (6.4-8.2) g/dL Albumin 2.5 L (3.2-5.0) g/dL Globulin 3.5 (2.2-4.2) g/dL Albumin/Globulin Ratio 0.7 L (0.9-2.4) RATIO U Random Total Protein (<11.9) mg/dL Urine Creatinine (NO RANGE EST.) mg/dL Protein/Creatinin Ratio Blood Type Antibody Screen 01/02/21 01/02/21 01/02/21 Range/Units 07:40 06:53 06:53 WBC (4.4-11.0) K/mm3 RBC (4.2-5.4) M/mm3 Hgb (12.0-15.0) g/dL Hct (37-47) % MCV (81-99) fL MCH (27.0-32.0) pg MCHC (32-36) g/dL RDW Std Deviation (35.1-43.9) fl RDW Coeff of Brittney (11.6-14.6) % Plt Count (150-450) K/mm3 MPV (6.2-12.0) fl Immature Gran % (Auto) (0.0-0.9) % Neut % (Auto) (47-70) % Lymph % (Auto) (19-41) % [place] % (Auto) (0-10) % Eos % (Auto) (0-5) % Baso % (Auto) (0-1) % Absolute Neuts (auto) (2.0-7.7) X10^3/uL Absolute Lymphs (auto) (0.83-4.51) X10^3/uL Nucleated RBC % (0-5) % Fibrinogen 554 H (203-444) mg/dl Sodium (136-145) mmol/L Potassium (3.5-5.1) mmol/L Chloride (98-107) mmol/L Carbon Dioxide (21.0-32.0) mmol/L Anion Gap (5-15) BUN (7-18) mg/dL Creatinine 0.56 (0.55-1.02) mg/dL Estim Creat Clear Calc 149.34 ml/min Est GFR (MDRD) Af Amer 169 (>60) mL/min Est GFR (MDRD) Non-Af 140 (>60) mL/min BUN/Creatinine Ratio (10-20) RATIO Glucose (74-106) mg/dL Uric Acid 4.6 (2.6-6.0) mg/dL Calcium (8.5-10.1) mg/dL Magnesium 4.7 H 12.6 H* (1.6-2.6) mg/dL Total Bilirubin (0.20-1.00) mg/dL AST 18 (15-37) U/L ALT 23 (13-56) U/L Alkaline Phosphatase (45-117) U/L Lactate Dehydrogenase 163 (84-246) U/L Total Protein (6.4-8.2) g/dL Albumin (3.2-5.0) g/dL Globulin (2.2-4.2) g/dL Albumin/Globulin Ratio (0.9-2.4) RATIO U Random Total Protein (<11.9) mg/dL Urine Creatinine (NO RANGE EST.) mg/dL Protein/Creatinin Ratio Blood Type Antibody Screen 01/02/21 01/01/21 01/01/21 Range/Units 06:53 23:30 23:30 WBC 15.1 H (4.4-11.0) K/mm3 RBC 4.37 (4.2-5.4) M/mm3 Hgb 12.1 (12.0-15.0) g/dL Hct 37.4 (37-47) % MCV 85.6 (81-99) fL MCH 27.7 (27.0-32.0) pg MCHC 32.4 (32-36) g/dL RDW Std Deviation 44.9 H (35.1-43.9) fl RDW Coeff of Brittney 14.6 (11.6-14.6) % Plt Count 282 (150-450) K/mm3 MPV 10.1 (6.2-12.0) fl Immature Gran % (Auto) (0.0-0.9) % Neut % (Auto) (47-70) % Lymph % (Auto) (19-41) % [place] % (Auto) (0-10) % Eos % (Auto) (0-5) % Baso % (Auto) (0-1) % Absolute Neuts (auto) (2.0-7.7) X10^3/uL Absolute Lymphs (auto) (0.83-4.51) X10^3/uL Nucleated RBC % (0-5) % Fibrinogen (203-444) mg/dl Sodium (136-145) mmol/L Potassium (3.5-5.1) mmol/L Chloride (98-107) mmol/L Carbon Dioxide (21.0-32.0) mmol/L Anion Gap (5-15) BUN (7-18) mg/dL Creatinine 0.64 (0.55-1.02) mg/dL Estim Creat Clear Calc ml/min Est GFR (MDRD) Af Amer 145 (>60) mL/min Est GFR (MDRD) Non-Af 120 (>60) mL/min BUN/Creatinine Ratio (10-20) RATIO Glucose (74-106) mg/dL Uric Acid 4.8 (2.6-6.0) mg/dL Calcium (8.5-10.1) mg/dL Magnesium (1.6-2.6) mg/dL Total Bilirubin (0.20-1.00) mg/dL AST 22 (15-37) U/L ALT 25 (13-56) U/L Alkaline Phosphatase (45-117) U/L Lactate Dehydrogenase (84-246) U/L Total Protein (6.4-8.2) g/dL Albumin (3.2-5.0) g/dL Globulin (2.2-4.2) g/dL Albumin/Globulin Ratio (0.9-2.4) RATIO U Random Total Protein (<11.9) mg/dL Urine Creatinine (NO RANGE EST.) mg/dL Protein/Creatinin Ratio Blood Type A POSITIVE Antibody Screen NEGATIVE 01/01/21 01/01/21 Range/Units 23:30 23:30 WBC 15.3 H (4.4-11.0) K/mm3 RBC 4.59 (4.2-5.4) M/mm3 Hgb 12.8 (12.0-15.0) g/dL Hct 38.8 (37-47) % MCV 84.5 (81-99) fL MCH 27.9 (27.0-32.0) pg MCHC 33.0 (32-36) g/dL RDW Std Deviation 43.4 (35.1-43.9) fl RDW Coeff of Brittney 14.2 (11.6-14.6) % Plt Count 321 (150-450) K/mm3 MPV 10.6 (6.2-12.0) fl Immature Gran % (Auto) (0.0-0.9) % Neut % (Auto) (47-70) % Lymph % (Auto) (19-41) % [place] % (Auto) (0-10) % Eos % (Auto) (0-5) % Baso % (Auto) (0-1) % Absolute Neuts (auto) (2.0-7.7) X10^3/uL Absolute Lymphs (auto) (0.83-4.51) X10^3/uL Nucleated RBC % (0-5) % Fibrinogen (203-444) mg/dl Sodium (136-145) mmol/L Potassium (3.5-5.1) mmol/L Chloride (98-107) mmol/L Carbon Dioxide (21.0-32.0) mmol/L Anion Gap (5-15) BUN (7-18) mg/dL Creatinine (0.55-1.02) mg/dL Estim Creat Clear Calc ml/min Est GFR (MDRD) Af Amer (>60) mL/min Est GFR (MDRD) Non-Af (>60) mL/min BUN/Creatinine Ratio (10-20) RATIO Glucose (74-106) mg/dL Uric Acid (2.6-6.0) mg/dL Calcium (8.5-10.1) mg/dL Magnesium (1.6-2.6) mg/dL Total Bilirubin (0.20-1.00) mg/dL AST (15-37) U/L ALT (13-56) U/L Alkaline Phosphatase (45-117) U/L Lactate Dehydrogenase (84-246) U/L Total Protein (6.4-8.2) g/dL Albumin (3.2-5.0) g/dL Globulin (2.2-4.2) g/dL Albumin/Globulin Ratio (0.9-2.4) RATIO U Random Total Protein < 6.0 (<11.9) mg/dL Urine Creatinine 28.90 (NO RANGE EST.) mg/dL Protein/Creatinin Ratio TNP Blood Type Antibody Screen - Physical Exam Vitals/I&O's: Vital Signs Temp Pulse Resp BP Pulse Ox 97.1 F L 92 16 131/73 H 98 01/05/21 01:55 01/05/21 01:55 01/05/21 01:55 01/05/21 01:55 01/04/21 08:33 Oxygen Delivery Method Room Air Weight: 238 lb 12.8 oz Body Mass Index (BMI) 37.3 Intake and Output for Last 24 Hours 01/03/21 01/04/21 01/05/21 23:59 23:59 23:59 Intake Total 4313.94 / 4313.94 496.42 / 496.42 Output Total 5025 / 5025 1400 / 1400 Balance -711.06 / -711.06 -903.58 / -903.58 General: Alert, Oriented x3, Cooperative, No apparent distress, Well developed, Well nourished HEENT: Atraumatic, PERRLA, EOMI, Normocephalic Neck: Supple, No JVD Lungs: Normal air movement Cardiovascular: Regular rate Abdomen: Soft, Non Tender, Non-Distended, - - fundus firm, incision c/d/i Extremities: No edema, No Calf Tenderness Neurological: Cranial nerves II-XII grossly intact, Neuro grossly intact Psych/Mental Status: Normal Affect, Appropriate Current Medications Acetaminophen (Acetaminophen 500 Mg Tablet) 1,000 mg PO Q6H [facility] Last Admin: 01/05/21 06:10 Dose: 1,000 mg Documented by: Bisacodyl (Bisacodyl 10 Mg Suppository) 10 mg RC UD PRN PRN Reason: If no BM Enoxaparin Sodium (Enoxaparin 40 Mg/0.4 Ml Syringe) 40 mg SC DAILY [facility] Last Admin: 01/04/21 09:35 Dose: 40 mg Documented by: Hydrocortisone (Hydrocortisone 2.5% Crm) 1 applic TOPICAL TID PRN PRN; Protocol PRN Reason: Discomfort Naloxone HCl (Naloxone 0.4 Mg/Ml Syringe) 0.02 mg IV Q1M PRN PRN Reason: RR <10 and pt unresponsive Naproxen (Naproxen 250 Mg Tablet) 500 mg PO Q8H [facility] Last Admin: 01/05/21 06:10 Dose: 500 mg Documented by: Ondansetron HCl (Ondansetron 4 Mg/2 Ml Vial) 4 mg IV Q4H PRN PRN PRN Reason: Nausea Oxycodone HCl (Oxycodone 5 Mg Tablet) 5 mg PO Q4H PRN PRN PRN Reason: Pain Score 6-10 Last Admin: 01/04/21 03:52 Dose: 5 mg Documented by: Prochlorperazine Edisylate (Prochlorperazine 10 Mg/2 Ml Vial) 10 mg IV Q6H PRN PRN PRN Reason: NAUSEA Senna/Docusate Sodium (Senna/Docusate Sodium 1 Tablet) 0 tablet PO DAILY [facility] Last Admin: 01/04/21 09:35 Dose: 1 tablet Documented by: Simethicone (Simethicone 80 Mg Tablet) 80 mg PO PCHS PRN PRN Reason: Indigestion/stomach pain Last Admin: 01/04/21 15:08 Dose: 80 mg Documented by: Sodium Chloride (0.9% Saline Lock 10 Ml Syringe) 5 - 15 ml IV UD PRN PRN Reason: SALINE FLUSH Last Admin: 01/04/21 03:50 Dose: 10 ml Documented by: Medical Necessity - Tobacco Use Smoking Status: Never smoker Assessment/Plan All Active Problems (Last Reviewed 12/27/20 @ 11:00 by Gail Augustin) Influenza vaccine administered (Acute) Alpha thalassemia silent carrier (Acute) PCOS (polycystic ovarian syndrome) (Acute) Thyroid disease affecting (Acute) 35 weeks gestation of (Resolved) Arrest of dilation, delivered, current hospitalization (Resolved) GBS (group B Streptococcus carrier), +RV culture, currently (Resolved) Non-reassuring heart rate or rhythm affecting management of fetus (Resolved) Pre-eclampsia, severe, third trimester (Resolved) (Resolved) Pyelectasis of fetus on ultrasound (Resolved) Supervision of high-risk (Resolved) Urinary tract infection affecting (Resolved) s/p LTCS PPD # 2 1. routine post care 2. breast feeding- support given 3. rh positive 4. rubella immune 5. PreEwSF - s/p mag, BPs normal, asymptomatic
[2021-01-05 08:40] VITALS: BP 125/76; PULSE 92; RESP 14; TEMP 36.4; O2SAT 99
[2021-01-05] MEDS: Enoxaparin 40 MG/0.4 ML Syringe SC (10:08)
[2021-01-05] MEDS: Senna/Docusate Sodium 1 Tablet PO (10:08)
--- NOTE | 2021-01-08 08:36 | DS.PCM_ITS ---
Discharge Date and Diagnosis - Problem List Patient Problems: Active and Suspected Problems (Last Reviewed 12/27/20 @ 11:00 by Gail Augustin) Influenza vaccine administered (Acute) 06/14/2020sc Alpha thalassemia silent carrier (Acute) both her and are carriers. declined testing in , plan testing after . PCOS (polycystic ovarian syndrome) (Acute) spontaneous conception. recommend healthy weight gain. metformin through 14 weeks. Thyroid disease affecting (Acute) check tsh q trimester. drawn already in 1 tm and WNL. 08/05 normal 10/25/2020 NL Date of Admission: 01/02/21 Date of Discharge: 01/05/21 - Primary Discharge Diagnosis Acute Problems: Active Problems (Last Reviewed 12/27/20 @ 11:00 by Gail Augustin) Influenza vaccine administered (Acute) 06/14/2020sc Alpha thalassemia silent carrier (Acute) both her and are carriers. declined testing in , plan testing after . PCOS (polycystic ovarian syndrome) (Acute) spontaneous conception. recommend healthy weight gain. metformin through 14 weeks. Thyroid disease affecting (Acute) check tsh q trimester. drawn already in 1 tm and WNL. 08/05 normal 10/25/2020 NL Preeclampsia with severe features Hospital Course and Treatment Consultations 01/01/21 23:48 Consult: Anesthesia Routine Comment: Reason For Exam: Labor Operations: - - Procedures: - - Summary of Care Provided: The patient is a 25 year old F admitted for induction of labor for preeclampsia with severe features. Patient had protracted labor course and underwent primary . course uncomplicated. BPs normal after delivery. Patient discharged to home in stable condition after meeting post-operative milestones. Patient Problems: Active and Suspected Problems (Last Reviewed 12/27/20 @ 11:00 by Gail Augustin) Influenza vaccine administered (Acute) 06/14/2020sc Alpha thalassemia silent carrier (Acute) both her and are carriers. declined testing in , plan testing after . PCOS (polycystic ovarian syndrome) (Acute) spontaneous conception. recommend healthy weight gain. metformin through 14 weeks. Thyroid disease affecting (Acute) check tsh q trimester. drawn already in 1 tm and WNL. 08/05 normal 10/25/2020 NL - Physical Exam Vitals/I&O's: Vital Signs Temp Pulse Resp BP Pulse Ox 97.6 F L 92 14 125/76 H 99 01/05/21 08:40 01/05/21 08:40 01/05/21 08:40 01/05/21 08:40 01/05/21 08:40 Oxygen Delivery Method Room Air Weight: 238 lb 12.8 oz Body Mass Index (BMI) 37.3 Discharge Diet: No Restrictions Discharge Activity: May Not Drive - for 2 weeks, May not drive while taking narcotic pain medications., May Shower, May Take a Tub Bath - in 7 days May resume sexual activity in: 4-6 weeks Additional Activity Instructions:: Nothing in the vagina for 4-6 weeks. You may return to work/school in 6 weeks. Call your doctor if your incision/area has: Continuous Slow Oozing, Sudden Increased Bleeding, Increased Pain/ Swelling, Increased Redness, Foul Smelling Discharge Call your doctor if you observe: Fever of 101 or Higher, Using more than one pad per hour - for 2 hours Suture Line Care: Avoid Pulling/Pushing, Avoid Pinching/Bending Cleanse incision/area with: Keep Dressing Clean & Dry Home Medications: Medications to take at Discharge cholecalciferol (vitamin D3) 125 mcg (5,000 unit) capsule 125 mcg PO DAILY 05/29/20 cod liver oil 1 cap PO DAILY 05/29/20 lactobacillus combination no.8 3 billion cell capsule 3,000 mmu cells PO DAILY 05/29/20 levothyroxine 50 mcg tablet 50 mcg PO DAILY 05/29/20 vitamin #56-iron 35 mg and 5 mg-folic acid 1 mg-dha capsule 1 cap PO DAILY 05/29/20 zinc 50 mg tablet 50 mg PO DAILY 05/29/20 Docusate Sodium [Colace] 100 mg PO DAILY 01/02/21 Polyethylene Glycol 3350 17 gm PO PRN PRN 01/02/21 Naproxen [Naprosyn] 250 - 500 mg PO Q8H PRN PRN #30 tab 01/03/21 Oxycodone HCl/Acetaminophen [Percocet 5-325] 1 - 2 tablet PO Q6H PRN PRN 7 Days #15 tablet 01/03/21 Following Prescriptions Were Given to Patient: Naproxen [Naprosyn] 250 - 500 mg PO Q8H PRN PRN #30 tab PRN Reason: MILD PAIN Transmission Status: Received by [facility] Oxycodone HCl/Acetaminophen [Percocet 5-325] 1 - 2 tablet PO Q6H PRN PRN 7 Days #15 tablet PRN Reason: Pain Transmission Status: Received by [facility] Primary Care Physician: Jennifer Abraham NP, PRODUCTION CONTROL CLERK-C [Primary Care Provider] - Please Follow Up With: Carmella Sewell MD - Call to make an appointment for an incision check in 1-2 [phone] When: You will need a post- check in 6 weeks. Medical Necessity - Tobacco Use Smoking Status: Never smoker Meaningful Use Info Meaningful Use Diagnoses (Choose all that apply): None applicable
== END 2021-01-05 10:45 | disposition home or self-care (01) | DRG 788 ==
LOC: WPOUT 23:51 → WP 23:51
PROVIDERS: Obstetrics & Gynecology; Admitting Provider Obstetrics & Gynecology; PCP Nurse Practitioner Primary Care; Visit Provider Obstetrics & Gynecology
DX: O76 Abnormality in fetal heart rate and rhythm complicating labor and delivery (principal); O62.0 Primary inadequate contractions; Z37.0 Single live birth; O14.14 Severe pre-eclampsia complicating childbirth; O99.824 Streptococcus B carrier state complicating childbirth; E28.2 Polycystic ovarian syndrome; E07.9 Disorder of thyroid, unspecified; O99.284 Endocrine, nutritional and metabolic diseases complicating childbirth; Z79.899 Other long term (current) drug therapy; D56.3 Thalassemia minor; Z3A.37 37 weeks gestation of pregnancy
CPT/HCPCS: 59025; 59050; 80053; 82565; 82570; 83615; 83735; 84156; 84450; 84460; 84550; 85025; 85027; 85384; 86850; 86900; 86901; 87426; 99218; J7040; J7120; A4216; G0378; J2405; J3490

== ENCOUNTER → 2021-02-10 16:22 | Outpatient (CLI) | payer SELFPAY ==
[2021-02-10 14:10] VITALS: BMI 33.0
[2021-02-14 08:44] LABS: HPV Reflexed? NOT INDICATED
== END ==
PROVIDERS: PCP Nurse Practitioner Primary Care; Visit Provider Obstetrics & Gynecology
DX: Z12.4 Encounter for screening for malignant neoplasm of cervix (principal)
CPT/HCPCS: 88175; G0145

== ENCOUNTER → 2022-02-12 | Outpatient (CLI) | payer OTHER, SELFPAY ==
[2022-02-12 14:54] LABS: Absolute Lymphocyte Count 3.41 X10^3/uL (0.83-4.51); Absolute Neutrophil Count 10.4 X10^3/uL (2.0-7.7); Basophil# 0.07 X10^3/uL; Basophil% 0.5 % (0-1); Eosinophil# 0.53 X10^3/uL; Eosinophils% 3.4 % (0-5); Hematocrit 42.1 % (37-47); Hemoglobin 13.5 g/dL (12.0-15.0); Lymphocyte # 3.41 X10^3/ul (0.83-4.51); Mean Corp Hgb Conc 32.1 g/dL (32-36); Mean Corpuscular Hgb 26.3 pg (27.0-32.0); Mean Corpuscular Volume 82.1 fL (81-99); Mean Platelet Vol. 9.2 fl (6.2-12.0); Monocyte# 0.96 X10^3/uL; Monocyte% 6.2 % (0-10); NRBC Flagged by Analyzer 0 % (0-5); Neutrophil # 10.42 X10^3/uL (2.7-7.7); Neutrophil % 67.1 % (47-70); Platelet Count 371 K/mm3 (150-450); RBC Distribution Width CV 14.4 % (11.6-14.6); RBC Distribution Width SD 42.6 fl (35.1-43.9); Red Blood Count 5.13 M/mm3 (4.2-5.4); White Blood Count 15.5 K/mm3 (4.4-11.0)
[2022-02-12 15:20] LABS: ALB/GLOB Ratio 0.8 RATIO (0.9-2.4); AST(SGOT) 14 U/L (15-37); Alanine Aminotransfer ALT/SGPT 29 U/L (13-56); Albumin, Serum 3.7 g/dL (3.2-5.0); Alkaline Phosphatase 59 U/L (45-117); Anion Gap 7 (5-15); BUN 11 mg/dL (7-18); BUN/Creat Ratio 19.9 RATIO (10-20); Calcium,Total 9.1 mg/dL (8.5-10.1); Chloride 106 mmol/L (98-107); Creatinine, Serum 0.55 mg/dL (0.55-1.02); EST Glomerular Filtration Rate 140 mL/min (>60); Est Glom Filt Rate - Afr Amer 170 mL/min (>60); Globulin 4.5 g/dL (2.2-4.2); Glucose 88 mg/dL (74-106); Potassium 3.7 mmol/L (3.5-5.1); Protein, Total 8.2 g/dL (6.4-8.2); Sodium Level 136 mmol/L (136-145); Thyroid Stim Hormone (TSH) 1.01 uIU/mL (0.358-3.74)
[2022-02-12 16:36] LABS: Protein, Urine (Random) < 6.0 mg/dL (<11.9)
[2022-02-12 20:53] LABS: Amphetamine Urine VISTA NEGATIVE (<1000 ng/mL); Barbiturate Urine VISTA NEGATIVE (< 200 ng/mL); Benzodiazepine Urine VISTA NEGATIVE (< 200 ng/mL); Cocaine Urine VISTA NEGATIVE (< 300 ng/mL); Ecstacy Urine VISTA NEGATIVE (< 500 ng/mL); Methadone Urine VISTA NEGATIVE (< 300 ng/mL); PCP Urine VISTA NEGATIVE (< 25 ng/mL); THC Urine VISTA NEGATIVE (< 50 ng/mL); Vista UDS pH Range 4
[2022-02-13 08:28] LABS: HIV - WCH Non-Reactive (Nonreactive); Hepatitis B Surface Antigen Non-Reactive (Nonreactive); Hepatitis C Antibody Non-Reactive (Nonreactive); Rubella IgG Equiv (Nonreactive); Syphilis Antibodies Non-reactive
[2022-02-16 22:06] LABS: Chlamydia By Nucleic Acid AMP Negative (Negative)
[2022-02-17 16:44] LABS: Gonococcus By Nucleic Acid AMP Negative (Negative)
== END | disposition home or self-care (01) ==
LOC: PAVLAB 14:33
PROVIDERS: PCP Nurse Practitioner Primary Care; Referring Provider Obstetrics & Gynecology; Visit Provider Obstetrics & Gynecology
DX: Z34.90 Encounter for supervision of normal pregnancy, unspecified, unspecified trimester (principal)
CPT/HCPCS: 36415; 80053; 80307; 82570; 84156; 84439; 84443; 85025; 86703; 86762; 86780; 86803; 86850; 86900; 86901; 87086; 87088; 87340; 87491; 87591

== ENCOUNTER → 2022-03-13 | Outpatient (CLI) | payer OTHER, SELFPAY ==
[2022-03-13 11:31] LABS: Glucose Challenge Gest 1H 50g 88 mg/dL (70-140)
== END | disposition home or self-care (01) ==
LOC: PAVLAB 10:36
PROVIDERS: PCP Nurse Practitioner Primary Care; Referring Provider Obstetrics & Gynecology; Visit Provider Obstetrics & Gynecology
DX: Z34.90 Encounter for supervision of normal pregnancy, unspecified, unspecified trimester (principal)
CPT/HCPCS: 36415; 82950

== ENCOUNTER → 2022-06-24 | Outpatient (CLI) | payer OTHER, SELFPAY ==
[2022-06-24 11:23] LABS: Absolute Lymphocyte Count 2.64 X10^3/uL (0.83-4.51); Absolute Neutrophil Count 9.9 X10^3/uL (2.0-7.7); Basophil# 0.06 X10^3/uL; Basophil% 0.4 % (0-1); Eosinophil# 0.42 X10^3/uL; Eosinophils% 2.9 % (0-5); Hematocrit 39.2 % (37-47); Hemoglobin 12.4 g/dL (12.0-15.0); Lymphocyte # 2.64 X10^3/ul (0.83-4.51); Lymphocyte % 18.5 % (19-41); Mean Corp Hgb Conc 31.6 g/dL (32-36); Mean Corpuscular Hgb 26.2 pg (27.0-32.0); Mean Corpuscular Volume 82.7 fL (81-99); Mean Platelet Vol. 9.6 fl (6.2-12.0); Monocyte# 1.08 X10^3/uL; Monocyte% 7.6 % (0-10); NRBC Flagged by Analyzer 0 % (0-5); Neutrophil # 9.86 X10^3/uL (2.7-7.7); Neutrophil % 69.2 % (47-70); Platelet Count 341 K/mm3 (150-450); RBC Distribution Width CV 14.6 % (11.6-14.6); RBC Distribution Width SD 43.3 fl (35.1-43.9); Red Blood Count 4.74 M/mm3 (4.2-5.4); White Blood Count 14.3 K/mm3 (4.4-11.0)
[2022-06-24 11:57] LABS: Glucose Challenge Gest 1H 50g 81 mg/dL (70-140); Thyroid Stim Hormone (TSH) 1.39 uIU/mL (0.358-3.74)
== END | disposition home or self-care (01) ==
LOC: PAVLAB 10:47
PROVIDERS: PCP Nurse Practitioner Primary Care; Referring Provider Nurse Practitioner Women's Health; Visit Provider Nurse Practitioner Women's Health
DX: O99.280 Endocrine, nutritional and metabolic diseases complicating pregnancy, unspecified trimester (principal); E07.9 Disorder of thyroid, unspecified; Z3A.00 Weeks of gestation of pregnancy not specified
CPT/HCPCS: 36415; 82950; 84443; 85025

== ENCOUNTER → 2022-08-26 | Outpatient (CLI) | payer MEDICAID, SELFPAY | END | disposition home or self-care (01) | PROVIDERS: PCP Nurse Practitioner Primary Care; Visit Provider Obstetrics & Gynecology | DX: O09.90 Supervision of high risk pregnancy, unspecified, unspecified trimester (principal); Z3A.00 Weeks of gestation of pregnancy not specified | CPT/HCPCS: 87081 ==

== ENCOUNTER 2022-08-29 21:20 | Outpatient (CLI) | payer MEDICAID, SELFPAY ==
[2022-08-29 21:25] VITALS: BMI 39.4
[2022-08-29 22:03] LABS: Hematocrit 41.8 % (37-47); Hemoglobin 13.2 g/dL (12.0-15.0); Mean Corp Hgb Conc 31.6 g/dL (32-36); Mean Corpuscular Volume 82.4 fL (81-99); Mean Platelet Vol. 9.9 fl (6.2-12.0); Platelet Count 348 K/mm3 (150-450); RBC Distribution Width CV 15.1 % (11.6-14.6); RBC Distribution Width SD 44.7 fl (35.1-43.9); Red Blood Count 5.07 M/mm3 (4.2-5.4)
[2022-08-29 22:07] VITALS: PULSE 110; TEMP 36.7; O2SAT 98
[2022-08-29 22:11] VITALS: BP 139/78; PULSE 97
[2022-08-29 22:18] LABS: Protein, Urine (Random) 6.8 mg/dL (<11.9); Protein:Creat Ratio 215 mg/g CRE (0-200)
[2022-08-29 22:24] VITALS: BP 136/66; PULSE 88
[2022-08-29 22:54] LABS: AST(SGOT) 18 U/L (15-37); Alanine Aminotransfer ALT/SGPT 32 U/L (13-56); Creatinine, Serum 0.45 mg/dL (0.55-1.02); EST Glomerular Filtration Rate 176 mL/min (>60); Est Glom Filt Rate - Afr Amer 213 mL/min (>60); Estimated Creatinine Clearance 182.61 ml/min; Uric Acid 3.5 mg/dL (2.6-6.0)
--- NOTE | 2022-08-31 04:33 | OB.TRI.PN ---
Progress Notes Progress Note: Patient presents for triage evaluation secondary to elevated bp at home FHT: 140 Moderate variability reactive no decelerations category I tracing Melbeta: no regular Contractions Assessment and plan: elevated bp Reactive NST, reassuring maternal and status patient discharged to home to follow-up as scheduled. See problem list details for additional plan information. Laboratory Studies: Laboratory Tests 08/29/22 08/29/22 08/29/22 Range/Units 22:30 21:50 21:50 WBC (4.4-11.0) K/mm3 RBC (4.2-5.4) M/mm3 Hgb (12.0-15.0) g/dL Hct (37-47) % MCV (81-99) fL MCH (27.0-32.0) pg MCHC (32-36) g/dL RDW Std Deviation (35.1-43.9) fl RDW Coeff of Brittney (11.6-14.6) % Plt Count (150-450) K/mm3 MPV (6.2-12.0) fl Creatinine 0.45 L Cancelled Estim Creat Clear Calc 182.61 Cancelled Est GFR (MDRD) Af Amer 213 Cancelled Est GFR (MDRD) Non-Af 176 Cancelled Uric Acid 3.5 Cancelled AST 18 Cancelled ALT 32 Cancelled U Random Total Protein 6.8 (<11.9) mg/dL Urine Creatinine 31.70 (NO RANGE EST.) mg/dL Protein/Creatinin Ratio 215 H (0-200) mg/g CRE 08/29/22 Range/Units 21:50 WBC 16.0 H (4.4-11.0) K/mm3 RBC 5.07 (4.2-5.4) M/mm3 Hgb 13.2 (12.0-15.0) g/dL Hct 41.8 (37-47) % MCV 82.4 (81-99) fL MCH 26.0 L (27.0-32.0) pg MCHC 31.6 L (32-36) g/dL RDW Std Deviation 44.7 H (35.1-43.9) fl RDW Coeff of Brittney 15.1 H (11.6-14.6) % Plt Count 348 (150-450) K/mm3 MPV 9.9 (6.2-12.0) fl Creatinine Estim Creat Clear Calc Est GFR (MDRD) Af Amer Est GFR (MDRD) Non-Af Uric Acid AST ALT U Random Total Protein (<11.9) mg/dL Urine Creatinine (NO RANGE EST.) mg/dL Protein/Creatinin Ratio (0-200) mg/g CRE Charges/Coding Procedures Urinary/Genital 52xxx-59xxx: [id number] non-stress test Interp
== END 2022-08-29 23:10 | disposition home or self-care (01) ==
LOC: WPOUT 21:24 → WP 21:25
PROVIDERS: PCP Nurse Practitioner Primary Care; Visit Provider Obstetrics & Gynecology
DX: R03.0 Elevated blood-pressure reading, without diagnosis of hypertension (principal); Z33.1 Pregnant state, incidental
CPT/HCPCS: 36415; 59025; 59050; 82565; 82570; 84156; 84450; 84460; 84550; 85027; 99218; G0378

== ENCOUNTER → 2022-09-02 | Outpatient (CLI) | payer MEDICAID, SELFPAY ==
--- NOTE | 2022-09-02 14:16 | US_ITS ---
STUDY: SECOND AND THIRD TRIMESTER OBSTETRICAL ULTRASOUND -- Limited REASON FOR EXAM: Female, 27 years old size and dates, growth assessment LMP: 12/12/2021 TECHNIQUE: Transabdominal TECHNICAL QUALITY: Adequate. PRIOR ULTRASOUND: None. FINDINGS: There is a single intrauterine fetus. The fetus is in a cephalic presentation. There is demonstrated cardiac activity with a heart rate of 145 bpm. There is a normal amniotic fluid volume. The largest amniotic fluid pocket measures 2.8 cm. The amniotic fluid index (FRANKY) is 9.6 cm. The placenta is fundal in location. There are Grade 1 placental changes. The cervix measures 4.1 cm in length. The adnexal regions are not visualized. BIOMETRY: BPD: 8.94 cm: 36 weeks, 1 days HC: 33.22 cm: 37 weeks, 6 days AC: 36.40 cm: 40 weeks, 2 days FL: 7.16 cm: 36 weeks, 5 days age by current US: 37 weeks, 4 days. NICOL by current US: 09/19/2022. Estimated weight: 3604 grams, +/- 541 grams, 85 %. Age by LMP: 37 weeks, 5 days. NICOL by LMP: 09/18/2022. US/OB Limited With Biometrics IMPRESSION: Single live intrauterine at 37 weeks, 4 days by current ultrasound NICOL of 09/19/2022. Heart rate at 145 bpm. No suspicious sonographic findings. Electronically Signed: Aleksander Brewster MD at 10:04 EST ,
== END | disposition home or self-care (01) ==
PROVIDERS: PCP Nurse Practitioner Primary Care; Referring Provider Obstetrics & Gynecology; Visit Provider Obstetrics & Gynecology
DX: O36.60X0 Maternal care for excessive fetal growth, unspecified trimester, not applicable or unspecified (principal); O99.213 Obesity complicating pregnancy, third trimester
CPT/HCPCS: 76816

== ENCOUNTER 2022-09-16 19:00 | Inpatient (IN) | payer BC, MEDICAID, SELFPAY ==
[2022-09-16] VITALS (19 sets, daily range): BP systolic 125–147; BP diastolic 69–90; PULSE 92–111; TEMP 36.2–36.9; O2SAT 97–99; BMI 38.6
[2022-09-16 17:39] LABS: Hematocrit 39.8 % (37-47); Hemoglobin 13.2 g/dL (12.0-15.0); Mean Corp Hgb Conc 33.2 g/dL (32-36); Mean Corpuscular Hgb 26.9 pg (27.0-32.0); Mean Corpuscular Volume 81.1 fL (81-99); Platelet Count 331 K/mm3 (150-450); RBC Distribution Width CV 14.6 % (11.6-14.6); Red Blood Count 4.91 M/mm3 (4.2-5.4); White Blood Count 13.8 K/mm3 (4.4-11.0)
[2022-09-16 17:58] LABS: Protein, Urine (Random) 8.7 mg/dL (<11.9); Protein:Creat Ratio 366 mg/g CRE (0-200)
[2022-09-16 18:07] LABS: AST(SGOT) 25 U/L (15-37); Alanine Aminotransfer ALT/SGPT 54 U/L (13-56); EST Glomerular Filtration Rate 157 mL/min (>60); Est Glom Filt Rate - Afr Amer 190 mL/min (>60); Estimated Creatinine Clearance 170.49 ml/min; Uric Acid 4.1 mg/dL (2.6-6.0)
[2022-09-16] MEDS: Lactated Ringers 1,000 ML 50 ML IV (20:35)
[2022-09-16] MEDS: 0.9% Normal Saline Single 100 ML IV.SOLN. INTRA-UTER (21:09)
--- NOTE | 2022-09-16 21:20 | HP.PCM.OB_ITS ---
HPI - General General Date of Admission: 09/16/22 HPI Narrative CAMILA PATTON, is a 27 y/o @ 39 weeks 5 days F who presents to L&D with mild pre-eclampsia diagnosed by prot: cr ratio >300 and elevated bp from her baseline (140-150/70's-90's). She denies visual changes, headache, or RUQ pain. Her last was complicated with severe pre-eclampsia and was taken for an emergent section due to heart rate decelerations at 6 cm dilation. She now wishes for a trial of labor after section. In the office today she was 2/60/-2 and vertex. EFW is 8.5 pounds +/- 500 grams today (based on growth scan 2 weeks ago)She was extensively counseled on the risks vs benefits of IOL and consent form was signed. She understands that her likely percent chance of success is 48% and not ideal but wants to give it a try. Maternal Data Information NICOL Calculator Estimated Delivery Date Method Current WG Current Estimate 09/18/22 Ultrasound #1 39w 5d Other Estimates 09/09/22 LMP (Certain) 41w 0d PFSH PFS Medical History (Updated 09/16/22 @ 20:54 by Elizabeth Arroyo) Hemorrhoid Hypothyroid IBS (irritable bowel syndrome) Normal colonoscopy PCOS (polycystic ovarian syndrome) depression Pre-eclampsia Thyroid disorder Home Medications levothyroxine 50 mcg tablet (Synthroid) 50 mcg PO DAILY hypothyroid 05/29/20 [History Last Taken 09/16/22 07:00] vitamin#30 30 mg iron-10 mg iron-folic acid 1 mg-omg3 capsule 1 cap PO DAILY 02/12/22 [History Last Taken 09/15/22 20:00] sunflower oil-parsley seed oil capsule 2 cap PO DAILY 02/12/22 [History Last Taken 09/15/22 20:00] Allergy/AdvReac Type Severity Reaction Status Date / Time morphine Allergy Severe Anaphylaxis Verified 09/16/22 20:55 penicillin G Allergy Severe Anaphylaxis Verified 09/16/22 20:55 latex Allergy Mild Rash Verified 09/16/22 20:55 Family History Mother GERD (gastroesophageal reflux disease) Grandmother Diabetes Surgical History Delivery by section History of cholecystectomy Social History Smoking Status: Never smoker alcohol intake: never substance use type: does not use caffeine: Yes what type of physical activity do you participate in: none seatbelt use: always do you feel safe at home: Yes additional social history: [facility] Patient is a nurse in [place] History 3 Elective abortions Hx Para 1 Spontaneous abortions 1 Hx # Term Pregnancies Ectopic pregnancies Hx # Pregnancies Multiple births # of living children 1 Past Pregnancies Del. Date Name GA/Weeks Outcome Route Bth Weight Gen Labor Lgth Anesthesia Del Locatn Provider FOB Unknown SAB 03/202001/03/21 Roberto live - full term Female [facility] Melodie Delivery Date: 01/03/21 Last Updated by: Rosa Goff LT IOL preeclampsia with severe features, FTP 5-6 cm recurrent decels Visit Details Expected Delivery Route/Plan tolac patient counseled regarding risks/benefits of trial of labor versus repeat . ACOG/uptodate education given to patient. [48.8] % likelihood of success per calculator TOLAC consent form signed: signed Labor Preferences- CB/BF classes: no labor support person: Saul labor intervention preferences: TOLAC, pain management options preferred: open to epidural;has supervisor orchard:Linda Morfin cut cord/dad catch: cord : yes PP control planned: discussed discussed possible routes of delivery and associated risks: [] special requests: [] Plans Covid status:discussed Flu vaccine: discussed Tdap vaccine: declines Rhogam: na LARC form signed: yes Problem list reviewed and updated with the most current plan of care details and appropriate orders placed. Relevant counseling for the gestational age provided. Continue routine care and follow up unless otherwise noted in visit notes/problem list details OB Flowsheet Initial Weight: Not Recorded Date -?-?-?-?-?-?-?-?-?-?-?-?- EGA Weight BP Urine Prot -?-?-?-?-?-?-?-?-?-?-?-?- Glucose FHR FuHt Pres Dilation -?-?-?-?-?-?-?-?-?-?-?-?- Effaced St Visit Note 02/12/22 -?-?-?-?-?-?-?-?-?-?-?-?- 8w 6d 221 lb -?-?-?-?-?-?-?-?-?-?-?-?- 175 -?-?-?-?-?-?-?-?-?-?-?-?- SM - CRL 1.95cm not cons with LMP 03/12/22 -?-?-?-?-?-?-?-?-?-?-?-?- 12w 6d 222 lb 6 oz 130/78 Nega tive -?-?-?-?-?-?-?-?-?-?-?-?- Negative 155 -?-?-?-?-?-?-?-?-?-?-?-?- JV- pt declines first trimester GCT for elevated bmi SHe agrees to fasting levels every day and gct at 26 weeks 04/09/22 -?-?-?-?-?-?-?-?-?-?-?-?- 16w 6d 222 lb 126/84 Negative -?-?-?-?-?-?-?-?-?-?-?-?- Negative 150 -?-?-?-?-?-?-?-?-?-?-?-?- SM- no vb crampi ng 04/30/22 -?-?-?-?-?-?-?-?-?-?-?-?- 19w 6d 225 lb 118/70 Negative -?-?-?-?-?-?-?-?-?-?-?-?- Negative 154 -?-?-?-?-?-?-?-?-?-?-?--?- JV- anatomy scan was incomplete but overall normal. She has another scan tomorrow. 05/25/22 -?-?-?-?-?-?-?-?-?-?-?-?- 23w 3d 228 lb 134/84 -?-?-?-?-?-?-?-?-?-?-?-?- 150 24 -?-?-?-?-?-?-?-?-?-?-?-?- SM- no vb lof go od fm n oreguar ctx 06/24/22 -?-?-?-?-?-?-?-?-?-?-?-?- 27w 5d 237 lb 124/84 Negative -?-?-?-?-?-?-?-?-?-?-?-?- Negative 163 -?-?-?-?-?-?-?-?-?-?-?-?- MH-No VB, LOF. G ood FM. 28 wk labs, larc. Declines tdap 07/10/22 -?-?-?-?-?-?-?-?-?-?-?-?- 30w 0d 238 lb 6 oz 130/79 Nega tive -?-?-?-?-?-?-?-?-?-?-?-?- Negative 145 31 Cephalic -?-?-?-?-?-?-?-?-?-?-?-?- LC- no vb,lof,ct x. +FM. comfort techniques for lower back pain. 07/22/22 -?-?-?-?-?-?-?-?-?-?-?-?- 31w 5d 242 lb 2 oz 119/75 Nega tive -?-?-?-?-?-?-?-?-?-?--?-?- Negative 160 32 -?-?-?-?-?-?-?-?-?-?-?-?- JV- unsure why p t was not taking baby asa but encouraged to do so today. no lof, vaginal bleeding, or dec fm. 08/07/22 -?-?-?-?-?-?-?-?-?-?-?-?- 34w 0d 246 lb 136/82 Negative -?-?-?-?-?-?-?-?-?-?-?-?- Negative 130 34 Cephalic -?-?-?-?-?-?-?-?-?-?-?-?- SM- no vb lof go od fm no regular ctx discussed TOLAC 08/19/22 -?-?-?-?-?-?-?-?-?-?-?-?- 35w 5d 251 lb 120/82 Negative -?-?-?-?-?-?-?-?-?-?-?-?- Negative 140 36 Cephalic -?-?-?-?-?-?-?-?-?-?-?-?- LC- no vb,lof,ct x. good fm.TOLAC consent obtained. denies concerns. 08/26/22 -?-?-?-?-?-?-?-?-?-?-?-?- 36w 5d 250 lb 2 oz 137/78 Nega tive -?-?-?-?-?-?-?-?-?-?-?-?- Negative 144 39 Cephalic -?-?-?-?-?-?-?-?-?-?-?-?- JV- LGA today. e xplained could be position of baby but will get a growth scan. GBS collected. pt declines exam. talked about today. 08/31/22 -?-?-?-?-?-?-?-?-?-?-?-?- 37w 3d 253 lb 122/86 -?-?-?-?-?-?-?-?-?-?-?-?- 145 39 Cephalic -?-?-?-?-?-?-?-?-?-?-?-?- LC- no lof,vb,ct x. good fm. eval neg for PEC over the weekend. no sommers,visual changes,ruq pain. 09/09/22 -?-?-?-?-?-?-?-?-?-?-?-?- 38w 5d 254 lb 115/80 Negative -?-?-?-?-?-?-?-?-?-?-?-?- Negative 140 39 Cephalic 1 -?--?-?-?-?-?-?-?-?-?-?-?- 30 -2 LC- no lof ,vb,ctx. good fm. reviewed growth scan. 85%, AC measuring 2 weeks ahead. reviewed risk of SD. 09/16/22 -?-?-?-?-?-?-?-?-?-?-?-?- 39w 5d 256 lb 8 oz 155/90 Nega tive -?-?-?-?-?-?-?-?-?-?-?-?- Negative 145 42 Cephalic 2 -?-?-?-?-?-?-?-?-?-?-?-?- 60 -2 JV- pt has elevated pressures today. her is reluctant to do anything about it. we discussed that it is recommended we deliver especially if when down on L&D pressures remain high. start with PIH labs and rpt blood pre ssurs. I informed her that our machines may be not working well to take bp. she is completely asymptomatic. ROS Constitutional Constitutional: Denies change in weight, fatigue, fever(s), headache(s), poor appetite or weakness Eyes Eyes: Denies blurry vision, change in vision, seeing flashes or spots in vision ENT HEENT: Denies dizziness, headache(s), loss taste/smell or sore throat Cardiovascular Cardiovascular: Denies chest pain, dizziness, dyspnea, irregular heart rhythm, leg edema, palpitations, rapid heart rate or vomiting Respiratory/Chest Respiratory/Chest: Denies chest tightness, cough, dyspnea or breast pain Gastrointestinal Gastrointestinal: Denies abdominal pain, anorexia, constipation, cramping, diarrhea, hemorrhoids, vomiting or weight changes Genitourinary Genitourinary: Denies dysuria, flank pain, genital lesions, genital pain, urinary frequency or urinary urgency Musculoskeletal Musculoskeletal: Denies back pain, difficulty walking, joint pain, limited range of motion, muscle cramps or numbness Integumentary Integumentary: Denies lesions or unusual bruising Neurologic Neurologic: Denies abnormal movements, abnormal speech, dizziness, numbness, seizure-like activity or syncope Psychiatric Psychiatric: Denies anxiety, behavioral changes, change in appetite, change in libido, cognitive impairment, confusion, depression, difficulty concentrating, hallucinations or suicidal thoughts Endocrine Endocrinology: Denies excessive sweating, polydipsia or polyuria Hematologic/Lymphatic Hematologic/Lymphatic: Denies easy bleeding, easy bruising or lymphadenopathy Allergic/Immunologic Allergic/Immunologic: Denies itchy eyes, lip swelling, seasonal rhinorrhea, rhinitis, throat swelling, tongue swelling, eczemia, wheezing or asthma Vital Signs Vital Signs Vital Signs: 09/16/22 16:45 09/16/22 16:46 09/16/22 16:46 Temperature Temperature Source Pulse Rate 108 H Blood Pressure 139/86 H BP Systolic 139 BP Diastolic 86 Pulse Ox 99 09/16/22 16:45 09/16/22 16:45 09/16/22 17:01 Temperature 98.5 F Temperature Source Tympanic Pulse Rate Blood Pressure 132/82 H BP Systolic 132 BP Diastolic 82 Pulse Ox 09/16/22 17:01 09/16/22 17:17 09/16/22 17:17 Temperature Temperature Source Pulse Rate 106 H 110 H Blood Pressure 142/85 H BP Systolic 142 BP Diastolic 85 Pulse Ox 09/16/22 17:31 09/16/22 17:31 09/16/22 17:46 Temperature Temperature Source Pulse Rate 96 Blood Pressure 134/86 H 136/79 H BP Systolic 134 136 BP Diastolic 86 79 Pulse Ox 09/16/22 17:46 09/16/22 18:01 09/16/22 18:01 Temperature Temperature Source Pulse Rate 93 102 H Blood Pressure 140/80 H BP Systolic 140 BP Diastolic 80 Pulse Ox 09/16/22 18:16 09/16/22 18:16 09/16/22 18:31 Temperature Temperature Source Pulse Rate 97 Blood Pressure 135/73 H 146/90 H BP Systolic 135 146 BP Diastolic 73 90 Pulse Ox 09/16/22 18:31 09/16/22 18:46 09/16/22 18:46 Temperature Temperature Source Pulse Rate 104 H 111 H Blood Pressure 143/83 H BP Systolic 143 BP Diastolic 83 Pulse Ox 09/16/22 19:20 09/16/22 19:20 09/16/22 19:20 Temperature Temperature Source Pulse Rate 98 96 Blood Pressure 140/83 H BP Systolic 140 BP Diastolic 83 Pulse Ox 09/16/22 19:20 09/16/22 19:25 09/16/22 19:25 Temperature Temperature Source Pulse Rate 98 Blood Pressure BP Systolic BP Diastolic Pulse Ox 98 97 09/16/22 19:30 09/16/22 19:30 09/16/22 19:34 Temperature Temperature Source Pulse Rate 92 Blood Pressure 147/83 H BP Systolic 147 BP Diastolic 83 Pulse Ox 98 09/16/22 19:34 09/16/22 19:35 09/16/22 19:35 Temperature Temperature Source Pulse Rate 97 93 Blood Pressure BP Systolic BP Diastolic Pulse Ox 97 09/16/22 19:53 09/16/22 19:53 09/16/22 19:53 Temperature Temperature Source Pulse Rate 108 H Blood Pressure 127/84 H BP Systolic 127 BP Diastolic 84 Pulse Ox 98 Weight Weight: 254 lb 3.088 oz Body Mass Index (BMI) 38.6 Physical Exam Const alert, oriented x3, no apparent distress and healthy appearing General Appearance: cooperative; Negative for anxious HEENT normocephalic Face and Sinus: normal facial exam Eyes EOMs intact bilaterally and no scleral icterus General Eye: normal appearance of both eyes Neck full ROM and supple Lymph Lymphatic: no lymphadenopathy noted Chest Chest: abnormal inspection of the chest Resp normal respiratory effort Effort and Inspection: able to speak in complete sentences Cardio regular rate GI soft to palpation and non-tender Inspection: gravid Palpation: soft; Negative for tender external exam normal Narrative: Cx: 2-3/70/-2, sosa bulb placed and inflated with 60cc NS without difficulty. Amniotic Fluid: ROM+plus Back/Spine no CVA tenderness Extremity normal to inspection, full ROM and no clubbing, cyanosis or edema General Extremity: Negative for calf tenderness or edema Skin Lesions: no lesions Rashes: no rashes Psych mental status grossly normal Labs Labs Labs: Blood Type A POSITIVE Antibody Screen NEGATIVE Hct 39.8 % (37-47) Hgb 13.2 g/dL (12.0-15.0) Obstetrics US Syphilis Total Ab Non-reactive Rubella IgG Antibody Equiv (Nonreactive) Hep Bs Antigen Non-Reactive (Nonreactive) Chlamydia DNA ([facility]) Negative (Negative) Neisseria gonorrhoeae DNA ([facility]) Negative (Negative) HIV 1&2 Antibody Non-Reactive (Nonreactive) Glucose 1 Hr 50 gm 81 mg/dL (70-140) Rhogam given: No Assessment & Plan (1) History of delivery: COMMENT: discussed TOLAC if spontaneous labor (2) Supervision of high-risk : COMMENT: PRR NICOL 09/18/22 girl PC Roberto Saul (3) Obesity affecting : QUALIFIERS: Trimester: third trimester Qualified Code(s): O99.213 - Obesity complicating , third trimester COMMENT: 1 TM GCT, encouraged healthy weight gain (4) : QUALIFIERS: Weeks of gestation: 39 weeks Qualified Code(s): Z3A.39 - 39 weeks gestation of COMMENT: GBS Negative, anatomy nl, genetic and carrier screening discussed (5) Thyroid disease affecting : COMMENT: synthroid, check labs q trimester (6) History of severe pre-eclampsia: COMMENT: baseline labs ordered. baby ASA recommended. (7) Rubella non-immune status, antepartum: COMMENT: mmr PLAN: now with mild pre-e no mag for now, close bp monitoring (8) Large for gestational age fetus affecting management of mother: (9) Elevated blood pressure affecting in third trimester, antepartum: COMMENT: at home with supervisor orchard, seen in triage and bps and labs WNL. dc home with precautions, fu in office as scheduled. PLAN: Plan Patient presents IOL, plan management for with sosa/pitocin/AROM. Pain management: plans epidural. GBS negative. Management of any complications: obesity, prior section, LGA, mild pre-eclampsia. chance of success is 48%. plan for careful monitoring and if decels, bleeding, or failure to progress, will proceed with section I have reviewed the [facility] and made any clinically relevant updates.
[2022-09-16] MEDS: Oxytocin 15 Units/NS 250ml 15 UNITS/250 ML IV.SOLN 2 UNITS IV (21:23)
[2022-09-17] VITALS (82 sets, daily range): BP systolic 96–175; BP diastolic 52–100; PULSE 89–133; RESP 16–18; TEMP 36.1–37.4; O2SAT 89–100
[2022-09-17] MEDS: LACTATED RINGERS 500 ML 999 ML IV ×2 (00:25→05:32)
[2022-09-17] MEDS: Lactated Ringers 1,000 ML 200 ML IV ×2 (03:53→09:55)
[2022-09-17] MEDS: fentaNYL-bupivacaine (epidural) 100 ML BAG EPIDURAL ×2 (05:31→09:35)
--- NOTE | 2022-09-17 07:54 | PN_ITS ---
Progress Note pt is comfortable with epidural. prior note documented in [facility]. Membranes were ruptured at 2 am after sosa came out and she was 5 cm. Nurse reports that at 5 am her cx was 6 cm current tracing: FHT: Moderate variability reactive no decelerations category I tracing [place]: q 2-4 min Contractions cx: 6/80 with anterior lip swelling and -1 station. reviewed tracing abnormalities since last note: no changes A/P: hd#2 IOL for pre-e, pt is attempting . epidural running and adequate continue pitocin and turning patient. bp's stable suspect 8lb 5 oz fetus +/- a pound maternal obesity pt understands chance of success is 48%
[2022-09-17] MEDS: 0.9% Saline Lock 10 ML Syringe IV ×3 (11:20→21:24)
[2022-09-17] MEDS: Ondansetron 4 MG/2 ML Vial IV (11:20)
[2022-09-17] MEDS: Sodium Citrate/Citric Acid 30 ML UDC PO (13:56)
[2022-09-17] MEDS: Lactated Ringers 1,000 ML 100 ML IV (15:20)
[2022-09-17] MEDS: Ketorolac 30 MG/ML Syringe IV ×2 (15:35→21:24)
[2022-09-17] MEDS: Oxytocin 15 Units/NS 250ml 15 UNITS/250 ML IV.SOLN 83 UNITS IV (15:35)
--- NOTE | 2022-09-17 17:01 | OP.PCM_ITS ---
Assessment & Plan (1) History of delivery: COMMENT: discussed TOLAC if spontaneous labor (2) Supervision of high-risk : COMMENT: PRR NICOL 09/18/22 girl PC Pardeep Saul (3) Obesity affecting : QUALIFIERS: Trimester: third trimester Qualified Code(s): O99.213 - Obesity complicating , third trimester COMMENT: 1 TM GCT, encouraged healthy weight gain (4) : QUALIFIERS: Weeks of gestation: 39 weeks Qualified Code(s): Z3A.39 - 39 weeks gestation of COMMENT: GBS Negative, anatomy nl, genetic and carrier screening discussed (5) Thyroid disease affecting : COMMENT: synthroid, check labs q trimester (6) History of severe pre-eclampsia: COMMENT: baseline labs ordered. baby ASA recommended. (7) Rubella non-immune status, antepartum: COMMENT: mmr (8) Large for gestational age fetus affecting management of mother: (9) Elevated blood pressure affecting in third trimester, antepartum: COMMENT: at home with dairy specialist, seen in triage and bps and labs WNL. dc home with precautions, fu in office as scheduled. (10) intolerance to labor, delivered, current hospitalization: (11) Failure to progress in labor: Maternal Data Information NICOL Calculator Estimated Delivery Date Method Current WG Current Estimate 09/18/22 Ultrasound #1 39w 6d Other Estimates 09/09/22 LMP (Certain) 41w 1d Details Operative Information Date of Procedure: 09/17/22 Pre-Operative Diagnosis: 39 weeks 6 days, mild pre-eclampsia, history of prior section, failure to progress, intolerance to labor Post-Operative Diagnosis: 39 weeks 6 days, mild pre-eclampsia, history of prior section, failure to progress, intolerance to labor Classification: BRENT Procedure Type: low transverse purification supervisor #1: Khushi Celis Type of Anesthesia: Epidural Antibiotic Given: Ancef 3 grams IV x1 and Zithromax 500 mg/5 mL X1 Drain: Sosa to straight drain Estimated Blood Loss: 300cc Findings Description of Procedure: The patient was induced with a sosa balloon and pitocin the AROM. She failed to dilate past 7 cm x 10 hours and started showing singns of intermittent late decels and then a 2 minute prolonged deceleration. The decision was made to proceed with a section. Epidural anesthesia was noted to be adequate. Sosa catheter was in in place. The patient was placed in the dorsal supine position with leftward tilt. Patient was prepped and draped in the normal s terile fashion. Pfannenstiel skin incision was made with the scalpel and carried through to the underlying layer of fascia with the scalpel. Fascia was nicked in the midline and the incision extended laterally. The rectus bellies were dissected off superiorly and inferiorly with out complication both sharply and bluntly. The peritoneum was entered digitally. The incision was stretched and a low transverse uterine incision was made with the scalpel. The 's head was delivered atraumatically followed by the anterior and posterior shoulders without complication the rest of the delivered. The cord was clamped and cut and the infant was handed off to awaiting nurse. The placenta was delivered spontaneously immediately following and was noted to be intact and have a three-vessel cord. The uterus was exteriorized cleared of all clots and debris, and the incision was closed in a double layer closure using #1 vicryl and #1 Monocryl. The ovaries and fallopian tubes were noted to be within normal limits. The uterus was returned to the maternal abdomen and gutters were cleared of all clots and debris. The peritoneum was closed with 3-0 Monocryl in a running fashion. Gloves were changed prior to fascial closure. Fascia was closed with 0 PDS in a running fashion. Subcutaneous tissue was copiously irrigated and the skin was closed with 3-0 Monocryl in a subcuticular fashion. Mepilex dressing was applied without complication. Patient was taken to recovery in stable condition. It was discussed with the patient that based on the clinical information obtained during this encounter, combined with her history, at this time I would recommend repeat sections for future deliveries if further pregnancies are desired. weight was 9 lbs 1 oz Presentation: Positive for Vertex Amniotic Membrane Rupture Type: Artificial Time of Membrane Ruptured: 2:00 am Amniotic Fluid Description: Yellow and Lightly stained meconium Placental Delivery Description: Expressed Placenta Disposition: patient wants to take home Cord Vessel Description: 3 Vessels Cord Entanglement: None Cord Gases: ABG and VBG Infant A Gender: Female (1 minute): 8 (5 minute): 10 Delayed Cord Clamping: Yes Complications Risks of Surgery Discussed w/Patient: Bleeding, Anesthesia Risks, Infection and Need for Future C-Sections Multi Select Codes Urinary/Genital Urinary/Genital CPT Codes: 51504 Delivery [facility]
[2022-09-17] MEDS: Acetaminophen 500 MG Tablet 1000 MG PO (17:25)
--- NOTE | 2022-09-17 18:23 | NURSING ---
Patient lab results shows patient is Rubella Equivocal. VIS provided to patient and patient educated to MMR vaccine. Patient refuses MMR vaccine at this time.
[2022-09-17] MEDS: oxyCODONE 5 MG Tablet PO ×2 (18:50→23:00)
--- NOTE | 2022-09-17 22:06 | NURSING ---
pt called this RN after 2100 in an increasing amount of pain and wanting pain medicine. After a few minutes, pts called this RN and stated her pain was getting worse and that she said she felt like she couldn't breathe. Aishwarya RN went in to assess pt while this RN grabbed pain medicine. PT stated she just choked on some water and she felt okay with breathing but that she believes she was feeling a lot of gas pains. Got pt up out of bed and into chair at 2140 and she was feeling better.
[2022-09-18] VITALS (7 sets, daily range): BP systolic 126–149; BP diastolic 73–88; PULSE 105–130; RESP 16–18; TEMP 36.4–36.8; O2SAT 96–97
[2022-09-18] MEDS: Acetaminophen 500 MG Tablet 1000 MG PO ×3 (00:11→12:28)
--- NOTE | 2022-09-18 03:00 | NURSING ---
During midnight rounds and vital signs, pt was up in room chnaging infants diaper and then proceeded into the bathroom where she wanted me to discontinue her sosa catheter. Pt wanted to get in the hsower but this RN gathered vital signs first and pt sat on the edge of the bed and HR was 131. Pt was in pain and was wanting to move around to help work out some gas pains, pt asymptomatic otherwise. After pt showered and was resting in bed, HR was 114 and pulse ox 96% at 0235. Other then pain, pt denies any other symptoms. Bleeding is appropriate and other VS WNL
[2022-09-18] MEDS: oxyCODONE 5 MG Tablet PO ×2 (03:21→08:34)
[2022-09-18] MEDS: Heparin Injection (Vial) 5,000 UNIT/ML VIAL 5000 UNIT SC ×2 (03:22→15:53)
[2022-09-18] MEDS: Ketorolac 30 MG/ML Syringe IV ×2 (03:22→09:42)
[2022-09-18] MEDS: 0.9% Saline Lock 10 ML Syringe IV ×2 (03:22→09:42)
[2022-09-18 06:04] LABS: Hematocrit 34.2 % (37-47); Hemoglobin 10.8 g/dL (12.0-15.0); Mean Corp Hgb Conc 31.6 g/dL (32-36); Mean Corpuscular Hgb 26.3 pg (27.0-32.0); Mean Corpuscular Volume 83.2 fL (81-99); Mean Platelet Vol. 9.6 fl (6.2-12.0); Platelet Count 286 K/mm3 (150-450); RBC Distribution Width SD 44.9 fl (35.1-43.9); Red Blood Count 4.11 M/mm3 (4.2-5.4); White Blood Count 20.3 K/mm3 (4.4-11.0)
[2022-09-18] MEDS: Levothyroxine 50 MCG Tablet PO (06:15)
--- NOTE | 2022-09-18 08:12 | PCM.DC.SUM ---
Providers Date of Admission: 09/16/22 Primary Care Physician: PUNEET Kerr Reason For Visit: REPEAT C SECTION Diagnosis Discharge Diagnosis (1) History of delivery: Status: Acute Code(s): Z98.891 - History of uterine scar from previous surgery (2) Supervision of high-risk : Status: Acute Code(s): O09.90 - Supervision of high risk , unspecified, unspecified trimester (3) Obesity affecting : Status: Acute Code(s): O99.210 - Obesity complicating , unspecified trimester Qualifiers: Trimester: third trimester Qualified Code(s): O99.213 - Obesity complicating , third trimester (4) : Status: Acute Code(s): Z34.90 - Encounter for supervision of normal , unspecified, unspecified trimester Qualifiers: Weeks of gestation: 39 weeks Qualified Code(s): Z3A.39 - 39 weeks gestation of (5) Thyroid disease affecting : Status: Acute Code(s): O99.280 - Endocrine, nutritional and metabolic diseases complicating , unspecified trimester; E07.9 - Disorder of thyroid, unspecified (6) History of severe pre-eclampsia: Status: Acute Code(s): Z87.59 - Personal history of other complications of , childbirth and the puerperium (7) Rubella non-immune status, antepartum: Status: Acute Code(s): O09.899 - Supervision of other high risk pregnancies, unspecified trimester; Z28.39 - Other underimmunization status (8) Large for gestational age fetus affecting management of mother: Status: Acute Code(s): O36.60X0 - Maternal care for excessive growth, unspecified trimester, not applicable or unspecified (9) Elevated blood pressure affecting in third trimester, antepartum: Status: Acute Code(s): O16.3 - Unspecified maternal hypertension, third trimester (10) intolerance to labor, delivered, current hospitalization: Status: Acute Code(s): O77.9 - Labor and delivery complicated by stress, unspecified (11) Failure to progress in labor: Status: Acute Code(s): O62.2 - Other uterine inertia Medications at Discharge Home Medications levothyroxine 50 mcg tablet (Synthroid) 50 mcg PO DAILY hypothyroid 05/29/20 vitamin#30 30 mg iron-10 mg iron-folic acid 1 mg-omg3 capsule 1 cap PO DAILY 02/12/22 sunflower oil-parsley seed oil capsule 2 cap PO DAILY 02/12/22 naproxen 250 mg tablet 500 mg PO Q8H PRN PRN Mild Pain #30 TABLETS 09/18/22 ondansetron 4 mg disintegrating tablet 4 mg PO Q8H PRN nausea and vomiting #14 tabs 09/18/22 oxycodone 5 mg capsule 5 mg PO Q4H PRN pain 7 days #20 caps 09/18/22 Hospital Course Operations None and section Summary of Care Provided Minutes Spent on Discharge: 15 Hospital Course: The patient was admitted for IOL on 09/16/22 for mild pre-eclampsia and during her trial of labor there were signs of distress and then a prolonged deceleration. because of her history of prior section, a repeat section was performed on 09/17/22. There were no complications. On day #1 she was tolerating pain well and ambulating and was ready for discharge. Physical Exam HEENT normocephalic Resp normal respiratory effort and normal air movement GI soft to palpation, non-tender and non-distended Rectal Exam: other Other Details: Incision is clean, dry, and intact no CVA tenderness Extremity normal to inspection General Extremity: edema bilateral (trace ) Weight / BMI Weight Weight: 254 lb 3.088 oz Body Mass Index (BMI) 38.6 ABG / Lab / Microbiology Data Result Diagrams: 09/18/22 05:54 09/16/22 17:05 Laboratory: Laboratory Results - last 24 hr 09/18/22 05:54: WBC 20.3 H, RBC 4.11 L, Hgb 10.8 L, Hct 34.2 L, MCV 83.2, MCH 26.3 L, MCHC 31.6 L, RDW Std Deviation 44.9 H, RDW Coeff of Brittney 15.0 H, Plt Count 286, MPV 9.6 D/C Instructions Discharge Diet: No restrictions May resume sexual activity in: 4-6 weeks Weight Bearing Status: Full weight bearing Call your doctor if your incision/area has: Continuous Slow Oozing, Sudden Increased Bleeding, Increased Pain/ Swelling, Increased Redness and Foul Smelling Discharge Call your doctor if you observe: Fever of 101 or Higher and Using more than 1 pad per hour Suture Line Care: Avoid Pulling/Pushing and Avoid Pinching/Bending Cleanse incision/area with: Soap & Water and Keep Dressing Clean & Dry Please Follow Up With: Martha Finch DO When: Call [phone] to make an appointment for an incision check in 1-2 weeks. Meaningful Use Info Meaningful Use Diagnoses (Choose all that apply): None applicable Discharge Plan Admission Admit Date/Time: 09/16/22 19:00 Primary Reason for Your Visit: section Attending Provider: Martha Finch Primary Care Provider: Jennifer Abraham NP Discharge Orders/Prescriptions Prescriptions: New oxycodone 5 mg capsule 5 mg PO Q4H PRN (Reason: pain) 7 Days Qty: 20 0RF naproxen 250 mg tablet 500 mg PO Q8H PRN PRN (Reason: Mild Pain ) Qty: 30 0RF ondansetron 4 mg tablet,disintegrating 4 mg PO Q8H PRN (Reason: nausea and vomiting) Qty: 14 0RF Continued levothyroxine [Synthroid] 50 mcg tablet 50 mcg PO DAILY PNV #[id number]-omega3 30 mg iron-10 mg iron-1 mg capsule 1 cap PO DAILY sunflower oil-parsley seed oil Capsule 2 cap PO DAILY Referrals / Follow Up: Jennifer Abraham NP, [employer] [Primary Care Provider] - Disposition Disposition (needs filled in before D/C Order can be placed): Home, Self Care
[2022-09-18] MEDS: Senna/Docusate Sodium 1 Tablet PO (09:41)
[2022-09-18] MEDS: Naproxen 500 MG Tablet PO (15:52)
== END 2022-09-18 17:50 | disposition home or self-care (01) | DRG 788 ==
LOC: WPOUT 19:27 → WP 19:27
PROVIDERS: Admitting Provider Registered Nurse; PCP Nurse Practitioner Primary Care; Referring Provider Obstetrics & Gynecology; Visit Provider Obstetrics & Gynecology
DX: O14.04 Mild to moderate pre-eclampsia, complicating childbirth (principal); O99.214 Obesity complicating childbirth; E07.9 Disorder of thyroid, unspecified; O77.0 Labor and delivery complicated by meconium in amniotic fluid; O62.2 Other uterine inertia; Z37.0 Single live birth; O36.63X0 Maternal care for excessive fetal growth, third trimester, not applicable or unspecified; O34.219 Maternal care for unspecified type scar from previous cesarean delivery; O99.284 Endocrine, nutritional and metabolic diseases complicating childbirth; Z3A.39 39 weeks gestation of pregnancy; Z79.899 Other long term (current) drug therapy
CPT/HCPCS: 59025; 59050; 82565; 82570; 84156; 84450; 84460; 84550; 85027; 86850; 86900; 86901; 99218; J7120; A4216; G0378; J2405

== ENCOUNTER → 2023-09-30 | Outpatient (CLI) | payer BC, MEDICAID, SELFPAY ==
[2023-09-30 13:31] LABS: Absolute Lymphocyte Count 3.22 X10^3/uL (0.83-4.51); Absolute Neutrophil Count 7.9 X10^3/uL (2.0-7.7); Basophil# 0.07 X10^3/uL; Basophil% 0.6 % (0-1); Eosinophil# 0.65 X10^3/uL; Eosinophils% 5.1 % (0-5); Hematocrit 44.2 % (37-47); Hemoglobin 13.8 g/dL (12.0-15.0); Lymphocyte # 3.22 X10^3/ul (0.83-4.51); Lymphocyte % 25.4 % (19-41); Mean Corp Hgb Conc 31.2 g/dL (32-36); Mean Corpuscular Hgb 25.7 pg (27.0-32.0); Mean Corpuscular Volume 82.3 fL (81-99); Mean Platelet Vol. 10.2 fl (6.2-12.0); Monocyte# 0.83 X10^3/uL; Monocyte% 6.5 % (0-10); NRBC Flagged by Analyzer 0 % (0-5); Neutrophil # 7.86 X10^3/uL (2.7-7.7); Neutrophil % 61.9 % (47-70); Platelet Count 355 K/mm3 (150-450); RBC Distribution Width CV 13.9 % (11.6-14.6); RBC Distribution Width SD 41.6 fl (35.1-43.9); Red Blood Count 5.37 M/mm3 (4.2-5.4); White Blood Count 12.7 K/mm3 (4.4-11.0)
[2023-09-30 13:32] LABS: Protein, Urine (Random) 8.3 mg/dL (<11.9); Protein:Creat Ratio 89 mg/g CRE (0-200)
[2023-09-30 13:59] LABS: Hemoglobin A1c 5.2 % (3.8-5.6)
[2023-09-30 14:04] LABS: AST(SGOT) 33 U/L (15-37); Alanine Aminotransfer ALT/SGPT 93 U/L (13-56); Albumin, Serum 3.8 g/dL (3.2-5.0); Alkaline Phosphatase 52 U/L (45-117); Anion Gap 7 (5-15); BUN 12 mg/dL (7-18); Chloride 109 mmol/L (98-107); EST Glomerular Filtration Rate 156 mL/min (>60); Est Glom Filt Rate - Afr Amer 188 mL/min (>60); Globulin 3.9 g/dL (2.2-4.2); Glucose 92 mg/dL (74-106); Potassium 3.7 mmol/L (3.5-5.1); Protein, Total 7.7 g/dL (6.4-8.2); Sodium Level 138 mmol/L (136-145); T4 Free Direct 1.09 ng/dL (0.76-1.46); Thyroid Stim Hormone (TSH) 1.95 uIU/mL (0.358-3.74)
[2023-09-30 14:31] LABS: HIV - WCH Non-Reactive (Nonreactive); Hepatitis B Surface Antigen Non-Reactive (Nonreactive); Hepatitis C Antibody Non-Reactive (Nonreactive); Rubella IgG Reactive (Nonreactive); Syphilis Antibodies Non-reactive
[2023-10-05 21:06] LABS: Chlamydia By Nucleic Acid AMP Negative (Negative); Gonococcus By Nucleic Acid AMP Negative (Negative)
== END | disposition home or self-care (01) ==
PROVIDERS: PCP Nurse Practitioner Primary Care; Referring Provider Advanced Practice Midwife; Visit Provider Advanced Practice Midwife
DX: Z34.90 Encounter for supervision of normal pregnancy, unspecified, unspecified trimester (principal); E03.9 Hypothyroidism, unspecified; R73.09 Other abnormal glucose
CPT/HCPCS: 36415; 80053; 82570; 83036; 84156; 84439; 84443; 85025; 86703; 86762; 86780; 86803; 86850; 86900; 86901; 87086; 87340; 87491; 87591

== ENCOUNTER 2024-02-07 08:55 | Outpatient (CLI) | payer BC, MEDICAID, SELFPAY ==
[2024-02-07 09:55] LABS: Absolute Neutrophil Count 7.5 X10^3/uL (2.0-7.7); Basophil# 0.05 X10^3/uL; Basophil% 0.5 % (0-1); Eosinophil# 0.32 X10^3/uL; Eosinophils% 2.9 % (0-5); Hematocrit 39.7 % (37-47); Hemoglobin 12.7 g/dL (12.0-15.0); Lymphocyte % 20.7 % (19-41); Mean Corpuscular Hgb 27.2 pg (27.0-32.0); Mean Platelet Vol. 10.2 fl (6.2-12.0); Monocyte% 7.2 % (0-10); NRBC Flagged by Analyzer 0 % (0-5); Neutrophil # 7.53 X10^3/uL (2.7-7.7); Neutrophil % 67.8 % (47-70); Platelet Count 262 K/mm3 (150-450); RBC Distribution Width CV 14.3 % (11.6-14.6); Red Blood Count 4.67 M/mm3 (4.2-5.4); White Blood Count 11.1 K/mm3 (4.4-11.0)
[2024-02-07 10:13] LABS: Glucose Challenge Gest 1H 50g 73 mg/dL (70-140)
[2024-02-07 10:42] LABS: HIV - WCH Non-Reactive (Nonreactive); Syphilis Antibodies Non-reactive
== END 2024-02-07 23:59 | disposition home or self-care (01) ==
PROVIDERS: Referring Provider Obstetrics & Gynecology; Visit Provider Obstetrics & Gynecology
DX: O09.90 Supervision of high risk pregnancy, unspecified, unspecified trimester (principal); Z3A.00 Weeks of gestation of pregnancy not specified; Z13.1 Encounter for screening for diabetes mellitus
CPT/HCPCS: 36415; 82950; 85025; 86703; 86780

== ENCOUNTER → 2024-04-24 | Outpatient (CLI) | payer BC, MEDICAID, SELFPAY | END | disposition home or self-care (01) | LOC: LABSPEC 12:22 | PROVIDERS: Referring Provider Obstetrics & Gynecology; Visit Provider Obstetrics & Gynecology | DX: O09.93 Supervision of high risk pregnancy, unspecified, third trimester (principal); Z3A.00 Weeks of gestation of pregnancy not specified | CPT/HCPCS: 87081 ==

== ENCOUNTER 2024-05-06 15:40 | Outpatient (CLI) | payer BC, MEDICAID, SELFPAY ==
[2024-05-06] VITALS (7 sets, daily range): BP systolic 130–135; BP diastolic 75–82; PULSE 87–107; RESP 16; TEMP 36.9; O2SAT 96; BMI 33.3
[2024-05-06 16:47] LABS: Hematocrit 41.1 % (37-47); Hemoglobin 13.4 g/dL (12.0-15.0); Mean Corp Hgb Conc 32.6 g/dL (32-36); Mean Corpuscular Hgb 26.7 pg (27.0-32.0); Mean Corpuscular Volume 81.9 fL (81-99); Mean Platelet Vol. 10.1 fl (6.2-12.0); Platelet Count 263 K/mm3 (150-450); RBC Distribution Width CV 13.7 % (11.6-14.6); RBC Distribution Width SD 39.9 fl (35.1-43.9); Red Blood Count 5.02 M/mm3 (4.2-5.4); White Blood Count 12.9 K/mm3 (4.4-11.0)
[2024-05-06 16:59] LABS: Creatinine, Urine (random) < 13.00 mg/dL (NO RANGE EST.); Protein, Urine (Random) < 6.0 mg/dL (<11.9)
[2024-05-06 17:03] LABS: AST(SGOT) 18 U/L (15-37); Alanine Aminotransfer ALT/SGPT 27 U/L (13-56); Creatinine, Serum 0.46 mg/dL (0.55-1.02); EST Glomerular Filtration Rate 169 mL/min (>60); Est Glom Filt Rate - Afr Amer 204 mL/min (>60); Estimated Creatinine Clearance 217.39 ml/min; Uric Acid 3.9 mg/dL (2.6-6.0)
--- NOTE | 2024-05-07 09:58 | OB.TRI.HP_ITS ---
HPI - General General Date of Service: 05/06/24 HPI Narrative CAMILA PATTON, is a 28 F who presents with dull headache and elevated BPs at home with blurry vision at home. presented for PEC work up. Maternal Data Information NICOL Calculator Estimated Delivery Date Method Current WG Current Estimate 05/23/24 Ultrasound #1 37w 5d Other Estimates 04/26/24 LMP (Uncertain) 41w 4d PFSH PFSH Medical History Spotting affecting Failure to progress in labor intolerance to labor, delivered, current hospitalization Thyroid disorder depression Pre-eclampsia Elevated blood pressure affecting in third trimester, antepartum Large for gestational age fetus affecting management of mother History of severe pre-eclampsia Thyroid disease affecting Obesity affecting Supervision of high-risk Normal colonoscopy Hemorrhoid IBS (irritable bowel syndrome) Hypothyroid PCOS (polycystic ovarian syndrome) Home Medications ?Medication ?Instructions ?Recorded ?Last Taken ?Type vitamin#30 30 mg iron-10 1 cap PO DAILY 02/12/22 05/05/24 History mg iron-folic acid 1 mg-omg3 capsule sunflower oil-parsley seed oil 2 cap PO DAILY 02/12/22 09/15/22 20:00 History capsule compr.stocking,thigh,short,med #12 ea 01/14/24 Unknown Rx Allergy/AdvReac Type Severity Reaction Status Date / Time morphine Allergy Severe Anaphylaxis Verified 05/02/24 09:22 penicillin G Allergy Severe Anaphylaxis Verified 05/02/24 09:22 latex Allergy Mild Rash Verified 05/02/24 09:22 Family History Mother GERD (gastroesophageal reflux disease) Grandmother Diabetes Surgical History [place] teeth extracted Status post section History of delivery Delivery by section History of cholecystectomy Social History adopted: No household members: spouse and children number of children: 2 current occupational status: unemployed current occupation: [employer] current occupational exposures/hazards: No pets and animals: Yes (NOT MANAGING THE LITTERBOX) pets and animals: cat(s) history of recent travel: No sexually active: Yes Smoking Status: Never smoker alcohol intake: never substance use type: does not use well-balanced diet: daily or most days caffeine: Yes Type: coffee Number of servings: 1 eating out: rarely or never during the past year weight has: decreased > 10 lbs what type of physical activity do you participate in: walking and weight training frequency: daily duration: 15-30 minutes/day ok/taoist: [employer]al seatbelt use: always do you feel safe at home: Yes additional social history: 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 Date Name GA/Weeks Outcome Route Bth Weight Infant Gen Labor Lgth Anesthesia Del Locatn Provider FOB Unknown SAB 03/202001/03/21 Roberto 38 live - full term 8# Female epidural [facility] Melodie 09/17/22 [place] 39 live - full term 9#1oz Female epidural [facility] Martha Lynch Delivery Date: 01/03/21 Last Updated by: Rosa Goff LT IOL preeclampsia with severe features, FTP 5-6 cm recurrent decels Delivery Date: 09/17/22 Last Updated by: Yuki Neal repeat section, failed Visit Details Expected Delivery Route/Plan RLTCS Desires repeat c/s Plans Covid status: [] Flu vaccine: declined Tdap vaccine: declines Rhogam: NA LARC form signed: yes Problem list reviewed and updated with the most current plan of care details and appropriate orders placed. Relevant counseling for the gestational age provided. Continue routine care and follow up unless otherwise noted in visit notes/problem list details OB Flowsheet Initial Weight: Not Recorded Date -?-?-?-?-?-?-?-?-?-?-?-?- EGA Weight BP Urine Prot -?-?-?-?-?-?-?-?-?-?-?-?- Glucose FHR FuHt Pres Dilation -?-?-?-?-?-?-?-?-?-?-?-?- Effaced St Visit Note 09/30/23 -?-?-?-?-?-?-?-?-?-?-?-?- 6w 2d 217 lb 6 oz 121/86 -?-?-?-?-?-?-?-?-?-?-?-?- 139 -?-?-?-?-?-?-?-?-?-?-?-?- kw-CRL not cons with dates. possibly 6 weeks. rescan in 2-3 weeks. JV assisted with scan kw-CRL not cons with dates. possibly 6 weeks. rescan in 2-3 weeks. JV assisted with scan. hypothyroid, pre e labs and A1c labs ordered with NOB 10/19/23 -?-?-?-?-?-?-?-?-?-?-?-?- 9w 0d 209 lb 132/78 Negative -?-?-?-?-?-?-?-?-?-?-?-?- Negative 160 -?-?-?-?-?-?-?-?-?-?-?-?- SM- no vb [place] ng NICOL made. 11/16/23 -?-?-?-?-?-?-?-?-?--?-?-?- 13w 0d 197 lb 2 oz 127/83 Nega tive -?-?-?-?-?-?-?-?-?-?-?-?- Negative 160 -?-?-?-?-?-?-?-?-?-?-?-?- JV- pt states is not doing anything to lose weight. She is eating 4 eggs a day with cottage cheese, toast with butter and not dieting. JV- pt states is not doing a nything to lose weight. She is eating 4 eggs a day with cottage cheese, toast with butter and not dieting. declines NIPT and AFP. 12/17/23 -?-?-?-?-?-?-?-?-?-?-?-?- 17w 3d 192 lb 113/78 -?-?-?-?-?-?-?-?-?-?-?-?- 160 -?-?-?-?-?-?-?-?-?-?-?-?- SM- no vb lof cr amping 01/14/24 -?-?-?-?-?-?-?-?-?-?-?-?- 21w 3d 191 lb 115/66 Negative -?-?-?-?-?-?-?-?-?-?-?-?- Negative 150 -?-?-?-?-?-?-?-?-?-?-?-?- SM- compression socks ordered 02/07/24 -?-?-?-?-?-?-?-?-?-?-?-?- 24w 6d 194 lb 117/76 Negative -?-?-?-?-?-?-?-?-?-?-?-?- Negative 145 25 -?-?-?-?-?-?-?-?-?-?-?-?- SM- no vb lof go od fm n roegular ctx 03/01/24 -?-?-?-?-?-?-?-?-?-?-?-?- 28w 1d 197 lb 120/66 Negative -?-?-?-?-?-?-?-?-?-?-?-?- Negative 158 28 -?-?-?-?-?-?-?-?-?-?-?-?- MH-No VB, LOF. G ood FM. Nl 28 wk labs. Larc. Joe arriolaap 03/17/24 -?-?-?-?-?-?-?-?-?-?-?-?- 30w 3d 200 lb 4 oz 126/76 Nega tive -?-?-?-?-?-?-?-?-?-?-?-?- Negative 150 30 -?-?-?-?-?-?-?-?-?-?-?-?- SM- no vb lof go od fm n oreuglar ctx 03/31/24 -?-?-?-?-?-?-?-?-?-?-?-?- 32w 3d 204 lb 114/75 Negative -?-?-?-?-?-?-?-?-?-?-?-?- Negative 140 33 -?-?-?-?-?-?-?-?-?-?-?-?- JV- no lof, vagi nal bleeding, or cramping. declines tdap. 04/14/24 -?-?-?-?-?-?-?-?-?-?-?-?- 34w 3d 206 lb 2 oz 121/77 Nega tive -?-?-?-?-?-?-?-?-?-?-?-?- Negative 140 34 -?-?-?-?-?-?-?-?-?-?-?-?- SM- no vb lof go od fm n oregular ctx 04/24/24 -?-?-?-?-?-?-?-?-?-?-?-?- 35w 6d 210 lb 8 oz 115/73 Nega tive -?-?-?-?-?-?-?-?-?-?-?-?- Negative 152 37 Cephalic -?-?-?-?-?-?-?-?-?-?-?-?- JV- gbs collecte d. no lof, vaginal bleeding, or dec fm. 05/02/24 -?-?-?-?-?-?-?-?-?-?-?-?- 37w 0d 214 lb 2 oz 130/76 Nega tive -?-?-?-?-?-?-?-?-?-?-?-?- Negative 145 37 Cephalic -?-?-?-?-?-?-?-?-?-?-?-?- SM- no vb lof go od fm no regular ctx NST FHR Rate Baby A Baseline: 130 Variability:: Moderate Accelerations:: 15 x 15 Decelerations:: None NST Reactive:: Yes FHR Category:: Category I Assessment & Plan (1) Hx of pre-eclampsia in prior , currently : COMMENT: discussed starting asa 81 mg (2) Elevated BP without diagnosis of hypertension: COMMENT: BP all under 140s. x1 with SBP at 90. headache improved with tylenol. cont home monitoring PLAN: Patient presents for triage evaluation secondary to elevated BP at home. stable bp in WP with negative PEC labs. FHT: Moderate variability reactive no decelerations category I tracing [place]: Contractions Assessment and plan: Reactive NST, reassuring maternal and status patient discharged to home to follow-up in office. See problem list details for additional plan information. Charges/Coding Procedures Urinary/Genital [id number]: 98055-04 non-stress test Interp Multi Select Codes Urinary/Genital Urinary/Genital CPT Codes: 76208-55 non-stress test Interp
== END 2024-05-06 17:30 | disposition home or self-care (01) ==
LOC: WPOUT 15:53 → WP 15:53
PROVIDERS: Referring Provider Registered Nurse; Visit Provider Registered Nurse
DX: O99.891 Other specified diseases and conditions complicating pregnancy (principal); R03.0 Elevated blood-pressure reading, without diagnosis of hypertension; O09.293 Supervision of pregnancy with other poor reproductive or obstetric history, third trimester; Z3A.41 41 weeks gestation of pregnancy
CPT/HCPCS: 36415; 59025; 59050; 82565; 82570; 84156; 84450; 84460; 84550; 85027; 99221; G0378

== ENCOUNTER 2024-05-16 05:24 | Inpatient (IN) | payer BC, MEDICAID, SELFPAY ==
[2024-05-16] VITALS (25 sets, daily range): BP systolic 80–151; BP diastolic 52–85; PULSE 71–113; RESP 12–20; TEMP 36.2–36.7; O2SAT 96–100; BMI 34.3
[2024-05-16] MEDS: Lactated Ringers 1,000 ML 999 ML IV (05:43)
--- NOTE | 2024-05-16 06:04 | HP.PCM.OB_ITS ---
HPI - General General Date of Admission: 05/16/24 HPI Narrative CAMILA PATTON, is a 29 F who presents fro [facility]. she declines TOLAC after 2 previous csections. Maternal Data Information NICOL Calculator Estimated Delivery Date Method Current WG Current Estimate 05/23/24 Ultrasound #1 39w 0d Other Estimates 04/26/24 LMP (Uncertain) 42w 6d PFSH PFSH Medical History (Updated 05/16/24 @ 05:59 by Avis Linton) Superficial varicosities Spotting affecting Failure to progress in labor intolerance to labor, delivered, current hospitalization Thyroid disorder depression Pre-eclampsia Elevated blood pressure affecting in third trimester, antepartum Large for gestational age fetus affecting management of mother History of severe pre-eclampsia Thyroid disease affecting Obesity affecting Supervision of high-risk Normal colonoscopy Hemorrhoid IBS (irritable bowel syndrome) Hypothyroid PCOS (polycystic ovarian syndrome) Home Medications ?Medication ?Instructions ?Recorded ?Last Taken ?Type vitamin#30 30 mg iron-10 1 cap PO DAILY 02/12/22 05/05/24 History mg iron-folic acid 1 mg-omg3 capsule sunflower oil-parsley seed oil 2 cap PO DAILY 02/12/22 09/15/22 20:00 History capsule compr.stocking,thigh,short,med #12 ea 01/14/24 Unknown Rx Allergy/AdvReac Type Severity Reaction Status Date / Time morphine Allergy Severe Anaphylaxis Verified 05/16/24 05:55 penicillin G Allergy Severe Anaphylaxis Verified 05/16/24 05:55 latex Allergy Mild Rash Verified 05/16/24 05:55 Family History Mother GERD (gastroesophageal reflux disease) Grandmother Diabetes Surgical History (Updated 05/16/24 @ 05:59 by Avis Linton) History of surgery [place] teeth extracted Status post section History of delivery Delivery by section History of cholecystectomy Social History adopted: No household members: spouse and children number of children: 2 current occupational status: unemployed current occupation: [employer] current occupational exposures/hazards: No pets and animals: Yes (NOT MANAGING THE LITTERBOX) pets and animals: cat(s) history of recent travel: No sexually active: Yes Smoking Status: Never smoker alcohol intake: never substance use type: does not use well-balanced diet: daily or most days caffeine: Yes Type: coffee Number of servings: 1 eating out: rarely or never during the past year weight has: decreased > 10 lbs what type of physical activity do you participate in: walking and weight training frequency: daily duration: 15-30 minutes/day ok/episcopalian: Shinto seatbelt use: always do you feel safe at home: Yes additional social history: Saul- [employer] History 4 Elective abortions Hx Para 2 Spontaneous abortions 1 Hx # Term Pregnancies Ectopic pregnancies Hx # Pregnancies Multiple births # of living children 2 Past Pregnancies Del. Date Name GA/Weeks Outcome Route Bth Weight Infant Gen Labor Lgth Anesthesia Del Locatn Provider FOB Unknown SAB 03/202001/03/21 Roberto 38 live - full term 8# Female epidural [facility] Melodie 09/17/22 [place] 39 live - full term 9#1oz Female epidural [facility] Martha Lynch Delivery Date: 01/03/21 Last Updated by: Rosa [facility] IOL preeclampsia with severe features, FTP 5-6 cm recurrent decels Delivery Date: 09/17/22 Last Updated by: Yuki Neal repeat section, failed Visit Details Expected Delivery Route/Plan [facility] Desires repeat c/s Plans Covid status: [] Flu vaccine: declined Tdap vaccine: declines Rhogam: NA LARC form signed: yes Problem list reviewed and updated with the most current plan of care details and appropriate orders placed. Relevant counseling for the gestational age provided. Continue routine care and follow up unless otherwise noted in visit notes/problem list details OB Flowsheet Initial Weight: Not Recorded Date -?-?--?-?-?-?-?-?-?-?-?-?- EGA Weight BP Urine Prot -?-?-?-?-?-?-?-?-?-?-?-?- Glucose FHR FuHt Pres Dilation -?-?-?-?-?-?-?-?-?-?-?-?- Effaced St Visit Note 09/30/23 -?-?-?-?-?-?-?-?-?-?-?-?- 6w 2d 217 lb 6 oz 121/86 -?-?-?-?-?-?-?-?-?-?-?-?- 139 -?-?-?-?-?-?-?-?-?-?-?-?- kw-CRL not cons with dates. possibly 6 weeks. rescan in 2-3 weeks. JV assisted with scan kw-CRL not cons with dates. possibly 6 weeks. rescan in 2-3 weeks. JV assisted with scan. hypothyroid, pre e labs and A1c labs ordered with NOB 10/19/23 -?-?-?-?-?-?-?-?-?-?-?-?- 9w 0d 209 lb 132/78 Negative -?-?-?-?-?-?-?-?-?-?-?-?- Negative 160 -?-?-?-?-?-?-?-?-?-?-?-?- SM- no vb crampi ng NICOL made. 11/16/23 -?-?-?-?-?-?-?-?-?-?-?-?- 13w 0d 197 lb 2 oz 127/83 Nega tive -?-?-?-?-?-?-?-?-?-?-?-?- Negative 160 -?-?-?-?-?-?-?-?-?-?-?-?- JV- pt states is not doing anything to lose weight. She is eating 4 eggs a day with cottage cheese, toast with butter and not dieting. JV- pt states is not doing a nything to lose weight. She is eating 4 eggs a day with cottage cheese, toast with butter and not dieting. declines NIPT and AFP. 12/17/23 -?-?-?-?-?-?-?-?-?-?-?-?- 17w 3d 192 lb 113/78 -?-?-?-?-?-?-?-?-?-?-?-?- 160 -?-?-?-?-?-?-?-?-?-?-?-?- SM- no vb lof cr amping 01/14/24 -?-?-?-?-?-?-?-?-?-?-?-?- 21w 3d 191 lb 115/66 Negative -?-?-?-?-?-?-?-?-?-?-?-?- Negative 150 -?-?-?-?-?-?-?-?-?-?-?-?- SM- compression socks ordered 02/07/24 -?-?-?-?-?-?-?-?-?-?-?-?- 24w 6d 194 lb 117/76 Negative -?--?-?-?-?-?-?-?-?-?-?-?- Negative 145 25 -?-?-?-?-?-?-?-?-?-?-?-?- SM- no vb lof go od fm n roegular ctx 03/01/24 -?-?-?-?-?-?-?-?-?-?-?-?- 28w 1d 197 lb 120/66 Negative -?-?-?-?-?-?-?-?-?-?-?-?- Negative 158 28 -?-?-?-?-?-?-?-?-?-?-?-?- MH-No VB, LOF. G ood FM. Nl 28 wk labs. Larc. Joe easley 03/17/24 -?-?-?-?-?-?-?-?-?-?-?-?- 30w 3d 200 lb 4 oz 126/76 Nega tive -?-?-?-?-?-?-?-?-?-?-?-?- Negative 150 30 -?-?-?-?-?-?-?-?-?-?-?-?- SM- no vb lof go od fm n oreuglar ctx 03/31/24 -?-?-?-?-?-?-?-?-?-?-?-?- 32w 3d 204 lb 114/75 Negative -?-?-?-?-?-?-?-?-?-?-?-?- Negative 140 33 -?-?-?-?-?-?-?-?-?-?-?-?- JV- no lof, vagi nal bleeding, or cramping. declines tdap. 04/14/24 -?-?-?-?-?-?-?-?-?-?-?-?- 34w 3d 206 lb 2 oz 121/77 Nega tive -?-?-?-?-?-?-?-?-?-?-?-?- Negative 140 34 -?-?-?-?-?-?-?-?-?-?-?-?- SM- no vb lof go od fm n oregular ctx 04/24/24 -?-?-?-?-?-?-?-?-?-?-?-?- 35w 6d 210 lb 8 oz 115/73 Nega tive -?-?-?-?-?-?-?-?-?-?-?-?- Negative 152 37 Cephalic -?-?-?-?-?-?-?-?-?-?-?-?- JV- gbs collecte d. no lof, vaginal bleeding, or dec fm. 05/02/24 -?-?-?-?-?-?-?-?-?-?-?-?- 37w 0d 214 lb 2 oz 130/76 Nega tive -?-?-?-?-?-?-?-?-?-?-?-?- Negative 145 37 Cephalic -?-?-?-?-?-?-?-?-?-?-?-?- SM- no vb lof go od fm no regular ctx 05/11/24 -?-?-?-?-?-?-?-?-?-?-?-?- 38w 2d 217 lb 4 oz 126/85 Nega tive -?-?-?-?-?-?-?-?-?-?-?-?- Negative 140 38 Cephalic -?-?-?-?-?-?-?-?-?-?-?-?- SM- preop visit done no vb lof good fm no regular cx sommers over the weekend nl bps, resolved now NST FHR Rate Baby A Baseline: 130 ROS Constitutional Constitutional: Reports systems reviewed and no addt'l complaints, except as documented Eyes Eyes: Denies change in vision ENT HEENT: Reports systems reviewed and no addt'l complaints, except as documented; Denies headache(s) Cardiovascular Cardiovascular: Reports systems reviewed and no addt'l complaints, except as documented; Denies chest pain or dyspnea Respiratory/Chest Respiratory/Chest: Reports systems reviewed and no addt'l complaints, except as documented Gastrointestinal Gastrointestinal: Reports systems reviewed and no addt'l complaints, except as documented; Denies abdominal pain Genitourinary Genitourinary: Reports systems reviewed and no addt'l complaints, except as documented, contractions Details: present (irregular) and movement Details: present; Denies dysuria or genital lesions Musculoskeletal Musculoskeletal: Reports systems reviewed and no addt'l complaints, except as documented Neurologic Neurologic: Reports systems reviewed and no addt'l complaints, except as documented Endocrine Endocrinology: Reports systems reviewed and no addt'l complaints, except as documented Vital Signs Vital Signs Vital Signs: 05/16/24 05:37 05/16/24 05:37 05/16/24 05:38 Pulse Rate 113 H Blood Pressure 146/82 H BP Systolic 146 BP Diastolic 82 Pulse Ox 97 05/16/24 05:38 05/16/24 05:42 05/16/24 05:42 Pulse Rate 96 100 Blood Pressure BP Systolic BP Diastolic Pulse Ox 98 05/16/24 05:43 05/16/24 05:43 05/16/24 05:47 Pulse Rate 101 H 91 Blood Pressure 151/85 H BP Systolic 151 BP Diastolic 85 Pulse Ox 05/16/24 05:47 05/16/24 05:50 05/16/24 05:50 Pulse Rate 90 Blood Pressure 138/78 H BP Systolic 138 BP Diastolic 78 Pulse Ox 98 Weight Weight: 219 lb 6 oz Body Mass Index (BMI) 34.3 Physical Exam Const alert, oriented x3, no apparent distress and healthy appearing HEENT normocephalic and moist oral mucous membranes Head and Scalp: atraumatic Neck full ROM, no lymphadenopathy, supple and thyroid normal General: trachea midline Lymph Lymphatic: no lymphadenopathy noted Chest inspection of chest normal Resp normal respiratory effort Cardio regular rate GI normal to inspection, nondistended, normoactive bowel sounds, soft to palpation and non-tender Inspection: gravid external exam normal Manual OB Exam: estimated gestational size appropriate, presentation cephalic, dilated, effaced and station Extremity normal to inspection General Extremity: Negative for edema Skin no rashes or lesions noted Neuro no focal motor deficits and deep tendon reflexes 2+ bilaterally Motor Exam: strength 5/5 throughout and clonus absent Psych mental status grossly normal Labs Labs Labs: Blood Type A POSITIVE Antibody Screen NEGATIVE Hct 41.1 % (37-47) Hgb 13.4 g/dL (12.0-15.0) Obstetrics Ultrasound Syphilis Total Ab Non-reactive Rubella IgG Antibody Reactive (Nonreactive) Hep Bs Antigen Non-Reactive (Nonreactive) Hepatitis C Antibody Non-Reactive (Nonreactive) Chlamydia DNA ([facility]) Negative (Negative) N.gonorrhoeae DNA ([facility]) Negative (Negative) HIV 1&2 Antibody Non-Reactive (Nonreactive) Glucose 1 Hr 50 gm 73 mg/dL (70-140) Rhogam given: No Assessment & Plan (1) Hypothyroidism: QUALIFIERS: Hypothyroidism type: acquired Qualified Code(s): E03.9 - Hypothyroidism, unspecified COMMENT: seeing endo in [place]. labs q trimester. 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 Scheduled for 05/16 with SM @ 7:15am (5) Hx of pre-eclampsia in prior , currently : COMMENT: discussed starting asa 81 mg (6) Supervision of high-risk : QUALIFIERS: Trimester: third trimester Qualified Code(s): O09.93 - Supervision of high risk , unspecified, third trimester COMMENT: PRR, NICOL 05/23/24 boy PC Meghna Roberto, Saul (7) : QUALIFIERS: Weeks of gestation: 37 weeks Qualified Code(s): Z3A.37 - 37 weeks gestation of COMMENT: Neg GBS. normal anatomy, declines genetic, carrier, and ntd screen. (8) Stress bladder incontinence, female: COMMENT: pelvic floor PT, request [facility]. void every 2-3 hours, wall planks until in to see PFPT. (9) Rubella non-immune status, antepartum: COMMENT: mmr
[2024-05-16] MEDS: Acetaminophen 500 MG Tablet 1000 MG PO ×3 (06:09→19:26)
[2024-05-16] MEDS: Lactated Ringers 1,000 ML 150 ML IV (06:55)
[2024-05-16] MEDS: Sodium Citrate/Citric Acid 30 ML UDC PO (07:03)
[2024-05-16 07:06] LABS: Absolute Lymphocyte Count 2.54 X10^3/uL (0.83-4.51); Absolute Neutrophil Count 9.1 X10^3/uL (2.0-7.7); Basophil# 0.07 X10^3/uL; Basophil% 0.5 % (0-1); Eosinophils% 2.3 % (0-5); Hematocrit 40.8 % (37-47); Lymphocyte # 2.54 X10^3/ul (0.83-4.51); Lymphocyte % 19.3 % (19-41); Mean Corp Hgb Conc 31.9 g/dL (32-36); Mean Corpuscular Hgb 26.6 pg (27.0-32.0); Mean Corpuscular Volume 83.4 fL (81-99); Mean Platelet Vol. 10.4 fl (6.2-12.0); Monocyte# 0.94 X10^3/uL; Monocyte% 7.1 % (0-10); NRBC Flagged by Analyzer 0 % (0-5); Neutrophil # 9.09 X10^3/uL (2.7-7.7); Neutrophil % 69.1 % (47-70); Platelet Count 273 K/mm3 (150-450); Red Blood Count 4.89 M/mm3 (4.2-5.4); White Blood Count 13.2 K/mm3 (4.4-11.0)
[2024-05-16] MEDS: Clindamycin 900 MG/50 ML BAG 75 MG IV (07:18)
--- NOTE | 2024-05-16 07:20 | DCINST_ITS ---
Discharge Instructions Diet Discharge Diet: No restrictions Activity Discharge Activity: May Not Drive (for 2 weeks or while taking narcotic pain medications.), May Shower and May Take a Tub Bath (in 7 days) May shower in (days): 0 May resume sexual activity in: 4-6 weeks Weight Bearing Status: Full weight bearing Lifting Restrictions: 20 pounds Dressing / Incision Call your doctor if your incision/area has: Continuous Slow Oozing, Sudden Increased Bleeding, Increased Pain/ Swelling, Increased Redness and Foul Smelling Discharge Call your doctor if you observe: Fever of 101 or Higher and Using more than 1 pad per hour (for 2 hours) Suture Line Care: Avoid Pulling/Pushing and Avoid Pinching/Bending Cleanse incision/area with: Soap & Water and Keep Dressing Clean & Dry Follow Up Care Please Follow Up With: Carmella Sewell MD When: Call [phone] to make an appointment for an incision check in 1-2 weeks. Test Results: Test results from this visit will be discussed in further detail at your follow- up appointment, if applicable. Discharge Plan Admission Admit Date/Time: 05/16/24 05:24 Attending Provider: Carmella Sewell Primary Care Provider: Care PhysicianYuki Primary Discharge Orders/Prescriptions Prescriptions: New oxycodone-acetaminophen [Percocet] 5-325 mg tablet 1 tab PO Q6H PRN (Reason: pain) 7 Days Qty: 10 0RF naproxen 500 mg tablet 500 mg PO BID PRN PRN (Reason: Pain) Qty: 30 1RF No Action PNV #[id number] 30 mg iron-10 mg iron-1 mg capsule 1 cap PO DAILY sunflower oil-parsley seed oil Capsule 2 cap PO DAILY (DME) compr.stocking,thigh,short,med Misc See Rx Instructions .Route Qty: 12 0RF Rx Instructions: As directed Referrals / Follow Up: Care Physician,No Primary [Primary Care Provider] - Disposition Disposition (needs filled in before D/C Order can be placed): Home, Self Care
--- NOTE | 2024-05-16 07:20 | EX.PCM.OBRPT ---
Assessment & Plan (1) Hypothyroidism: QUALIFIERS: Hypothyroidism type: acquired Qualified Code(s): E03.9 - Hypothyroidism, unspecified COMMENT: seeing endo in [place]. labs q trimester. 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 Scheduled for 05/16 with SM @ 7:15am (5) Hx of pre-eclampsia in prior , currently : COMMENT: discussed starting asa 81 mg (6) Supervision of high-risk : QUALIFIERS: Trimester: third trimester Qualified Code(s): O09.93 - Supervision of high risk , unspecified, third trimester COMMENT: PRR, NICOL 05/23/24 boy PC Roberto, Coffman, Saul (7) Rubella non-immune status, antepartum: COMMENT: mmr (8) Stress bladder incontinence, female: COMMENT: pelvic floor PT, request [facility]. void every 2-3 hours, wall planks until in to see PFPT. (9) : QUALIFIERS: Weeks of gestation: 37 weeks Qualified Code(s): Z3A.37 - 37 weeks gestation of COMMENT: Neg GBS. normal anatomy, declines genetic, carrier, and ntd screen. (10) delivery delivered: COMMENT: [facility] boy [place] 39 Maternal Data Information NICOL Calculator Estimated Delivery Date Method Current WG Current Estimate 05/23/24 Ultrasound #1 39w 0d Other Estimates 04/26/24 LMP (Uncertain) 42w 6d Final NICOL Source: LMP Details Operative Information Date of Procedure: 05/16/24 Pre-Operative Diagnosis: Previous Post-Operative Diagnosis: same Indications for : Repeat Elective (and cystoscopy) Indications Narrative: Surgeon: Carmella Sewell MD Classification: Scheduled Procedure Type: low transverse medical device sales consultant #1: Russell Garcia Type of Anesthesia: Spinal Special Medications: hemoblast Antibiotic Given: Ancef 2 grams IV x1 Drain: Sosa to straight drain Estimated Blood Loss: 400 Fluids Replaced: crystalloid Procedure Start Time: 07:40 Procedure Stop Time: 08:22 Findings Description of Procedure: Spinal anesthesia was placed without difficulty. Sosa catheter was placed. The patient was placed in the dorsal supine position with leftward tilt. Patient was prepped and draped in the normal sterile fashion. Pfannenstiel skin incision was made with the scalpel and carried through to the underlying layer of fascia with the scalpel. Fascia was nicked in the midline and the incision extended laterally. The rectus bellies were dissected off superiorly and inferiorly with out complication both sharply and bluntly. The peritoneum was entered digitally. The incision was stretched and a low transverse uterine incision was made with the scalpel. The 's head was delivered atraumatically followed by the anterior and posterior shoulders without complication the rest of the infant delivered. The cord was clamped and cut and the was handed off to awaiting nurse. The placenta was delivered spontaneously immediately following and was noted to be intact and have a three-vessel cord. The uterus was exteriorized cleared of all clots and debris, and the incision was closed in a single layer closure using #1 Monocryl. The ovaries and fallopian tubes were noted to be within normal limits. The uterus was returned to the maternal abdomen , hemoblast placed over the incision to obtian hemostasis, and gutters were cleared of all clots and debris. The peritoneum was closed with 3-0 Monocryl in a running fashion. Gloves were changed prior to fascial closure. Fascia was closed with 0 PDS in a running fashion. Subcutaneous tissue was copiously irrigated and the skin was closed with 3-0 Monocryl in a subcuticular fashion. Mepilex dressing was applied without complication. pink tinged urine was note din the sosa at the end of the procedure so the patient was prepped and draped in doral lithotomy and cystosocpy performed, bilateral ureteral spray seen, some petechial hemorrhages seen and superficial bruising as the source of the hematuria, no lacerations noted. all instruments removed, foler replaced and the Patient was taken to recovery in stable condition. Amniotic Membrane Rupture Type: Artificial Amniotic Fluid Description: Clear Placenta Disposition: [facility] Cord Vessel Description: 3 Vessels Delayed Cord Clamping: Yes Complications Risks of Surgery Discussed w/Patient: Bleeding, Infection, Need for Future C-Sections and Injury to surrounding structure(s) including bowel and bladder Vaginal Delivery Complication Complications: None Admit VTE Documentation VTE Present on Admission: No VTE Mechan Device Prophylaxis: SCD's Procedures Urinary/Genital [id number]: [id number] Delivery [facility]
[2024-05-16] MEDS: Gentamicin IV 310 MG in Dextrose 5%-Water (50mL Bag) 50 ML 100 MG IVPB (07:32)
[2024-05-16 08:38] LABS: Syphilis Antibodies Non-reactive
[2024-05-16] MEDS: Lactated Ringers 500 ML 999 ML IV (09:10)
[2024-05-16] MEDS: Oxytocin 15 Units/NS 250ml 15 UNITS/250 ML IV.SOLN 83 UNITS IV (09:40)
[2024-05-16] MEDS: Ketorolac 30 MG/ML Syringe IV ×2 (10:03→16:11)
[2024-05-16] MEDS: Lactated Ringers 1,000 ML 100 ML IV (12:50)
[2024-05-16] MEDS: Enoxaparin 40 MG/0.4 ML Syringe SC (19:27)
[2024-05-16] MEDS: Naproxen 500 MG Tablet PO (23:50)
[2024-05-17] MEDS: Acetaminophen 500 MG Tablet 1000 MG PO ×2 (00:28→07:26)
[2024-05-17 05:00] VITALS: BP 126/76; PULSE 80; RESP 16; O2SAT 98
[2024-05-17 05:19] LABS: Hematocrit 36.4 % (37-47); Hemoglobin 11.6 g/dL (12.0-15.0); Mean Corp Hgb Conc 31.9 g/dL (32-36); Mean Corpuscular Hgb 26.7 pg (27.0-32.0); Mean Corpuscular Volume 83.7 fL (81-99); Mean Platelet Vol. 10.1 fl (6.2-12.0); Platelet Count 244 K/mm3 (150-450); RBC Distribution Width CV 14.1 % (11.6-14.6); RBC Distribution Width SD 42.8 fl (35.1-43.9); Red Blood Count 4.35 M/mm3 (4.2-5.4); White Blood Count 16.4 K/mm3 (4.4-11.0)
--- NOTE | 2024-05-17 07:05 | PCM.PN.OB ---
Subjective Subjective Patient doing well without complaints. Tolerating PO. Ambulating and voiding without difficulty. feeding well. Denies chest pain, shortness of breath, calf pain/swelling, fevers, chills, lightheadedness. Objective Data Objective Data Vital Signs: Vital Signs Temp Pulse Resp BP Pulse Ox O2 Del Method 98.0 F 80 16 126/76 H 98 Room Air 05/16/24 23:50 05/17/24 05:00 05/17/24 05:00 05/17/24 05:00 05/17/24 05:00 05/17/24 05:00 Oxygen Delivery Method Room Air Weight: 219 lb 6 oz Body Mass Index (BMI) 34.3 Intake & Output: Intake and Output for Last 24 Hours 05/15/24 05/16/24 05/17/24 23:59 23:59 23:59 Intake Total 2463.58 / 2463.58 Output Total 2575 / 2575 Balance -111.42 / -111.42 Lab / Micro Data 05/17/24 05:05 Labs: Laboratory Results - last 24 hr 05/16/24 05:43: Syphilis Total Ab Non-reactive, Blood Type A POSITIVE, Antibody Screen NEGATIVE 05/16/24 06:30: WBC 13.2 H, RBC 4.89, Hgb 13.0, Hct 40.8, MCV 83.4, MCH 26.6 L, MCHC 31.9 L, RDW Std Deviation 42.0, RDW Coeff of Brittney 14.0, Plt Count 273, MPV 10.4, Immature Gran % (Auto) 1.700 H, Neut % (Auto) 69.1, Lymph % (Auto) 19.3, [place] % (Auto) 7.1, Eos % (Auto) 2.3, Baso % (Auto) 0.5, Absolute Neuts (auto) 9.1 H, Absolute Lymphs (auto) 2.54, Nucleated RBC % 0 05/17/24 05:05: WBC 16.4 H, RBC 4.35, Hgb 11.6 L, Hct 36.4 L, MCV 83.7, MCH 26.7 L, MCHC 31.9 L, RDW Std Deviation 42.8, RDW Coeff of Brittney 14.1, Plt Count 244, MPV 10.1 ROS Constitutional Constitutional: Reports systems reviewed and no addt'l complaints, except as documented Cardiovascular Cardiovascular: Reports systems reviewed and no addt'l complaints, except as documented Respiratory/Chest Respiratory/Chest: Reports systems reviewed and no addt'l complaints, except as documented Gastrointestinal Gastrointestinal: Reports systems reviewed and no addt'l complaints, except as documented Physical Exam Const alert, oriented x3 and no apparent distress HEENT Head and Scalp: atraumatic Resp normal respiratory effort GI soft to palpation and non-tender Inspection: incision intact, healing well and drainage (none) Bimanual Exam - Vag & Uterus: uterus non-tender Uterus Palpation: uterus fundus firm (below Umbilicus) Assessment & Plan (1) delivery delivered: COMMENT: [facility] boy [place] 39 PLAN: Plan s/p LTCS PPD # 1 1. routine post care 2. breast feeding- support given 3. rh positive 4. rubella nonimmune- MMR if desired
[2024-05-17 07:55] VITALS: BP 128/80; PULSE 83; RESP 16; TEMP 36.3; O2SAT 98
[2024-05-17] MEDS: Senna/Docusate Sodium 1 Tablet PO (08:38)
[2024-05-17] MEDS: Naproxen 500 MG Tablet PO (08:39)
== END 2024-05-17 11:45 | disposition home or self-care (01) | DRG 788 ==
PROVIDERS: Admitting Provider Obstetrics & Gynecology; Referring Provider Obstetrics & Gynecology; Visit Provider Obstetrics & Gynecology
PROC: 10D00Z1 Extraction of Products of Conception, Low, Open Approach (ICD-10-PCS; CPT 59514; principal; 2024-05-16 07:00)
DX: O34.211 Maternal care for low transverse scar from previous cesarean delivery (principal); D56.3 Thalassemia minor; E03.9 Hypothyroidism, unspecified; F41.9 Anxiety disorder, unspecified; O99.284 Endocrine, nutritional and metabolic diseases complicating childbirth; Z37.0 Single live birth; O99.344 Other mental disorders complicating childbirth; Z3A.37 37 weeks gestation of pregnancy; O99.892 Other specified diseases and conditions complicating childbirth; N39.46 Mixed incontinence; Z90.49 Acquired absence of other specified parts of digestive tract; O99.02 Anemia complicating childbirth
CPT/HCPCS: 59025; 59050; 85025; 85027; 86780; 86850; 86900; 86901; 99221; J7120; G0378; J2405

== ENCOUNTER → 2024-07-31 | Outpatient (CLI) | payer BC, MEDICAID, SELFPAY | END | disposition home or self-care (01) | LOC: LABSPEC 16:32 | PROVIDERS: Referring Provider Advanced Practice Midwife; Visit Provider Advanced Practice Midwife | DX: T14.8XXA Other injury of unspecified body region, initial encounter (principal) | CPT/HCPCS: 87070; 87205 ==

== ENCOUNTER → 2025-05-07 | Outpatient (CLI) | payer BC, MEDICAID, SELFPAY ==
--- NOTE | 2025-05-07 13:52 | BI_ITS ---
EXAM: DIAG MAMM W/CAD, BILAT 05/07/2025 CLINICAL HISTORY: F, Age 29 y/o , BREAST LUMP TECHNIQUE: DIAG MAMM W/CAD, BILAT. COMPARISON: None FINDINGS: TISSUE DENSITY: The breasts are heterogeneously dense, which may obscure small masses. Bilateral Breast Mammographic Findings: No significant masses, calcifications or other abnormalities are identified. BI/DIAG MAMM W/CAD, BILAT IMPRESSION: Negative examination. With the patient's history of a palpable lump in the inf erior aspect of the right breast, targeted sonographic correlation recommended. OVERALL FINAL ASSESSMENT BI-RADS 0: INCOMPLETE - NEED ADDITIONAL IMAGING EVALUATION. RECOMMENDATION: Ultrasound Recommended A letter with findings and recommendations will be mailed to the patient. Reading Location: [id number]
--- NOTE | 2025-05-07 13:52 | US_ITS ---
PROCEDURE: BREAST LIMITED UNILATERAL 05/07/2025 REASON FOR EXAM: F, Age 29 y/o , RIGHT BREAST MASS COMPARISON: Prior mammogram done earlier in the day.. TECHNIQUE: BREAST LIMITED UNILATERAL. The 4 o'clock region of the breast was examined with ultrasound. This corresponds to the palpable abnormality. FINDINGS: Fibroglandular tissue. No sonographic abnormality is seen. US/Breast Limited Unilateral IMPRESSION: No sonographic abnormality is seen. BI-RADS 1: NEGATIVE RECOMMENDATION: Routine annual follow-up in 1 Year Reading Location: [id number]
== END | disposition home or self-care (01) ==
LOC: OPUS 13:51
PROVIDERS: PCP Nurse Practitioner Primary Care; Referring Provider Nurse Practitioner Women's Health; Visit Provider Nurse Practitioner Women's Health
DX: N63.10 Unspecified lump in the right breast, unspecified quadrant (principal)
CPT/HCPCS: 76642; 77062; 77066; G0279